=== PATIENT | male | born 1945 | race Caucasian/White ===

== ENCOUNTER → 2016-11-27 | Outpatient (REF) | payer MEDICARE, OTHER ==
[~2016-11-27] MED LIST: ATOR40TA PO; CENTTAB PO; COUM2.5T11 PO; FISH OIL OR; PERC5TAB6 PO; THERATEARS OR; TYLE325T5 PO; calcium with D OR; mycophenolate OR; prednisone OR
[2016-11-27 14:18] LABS: BASO % 0.5 % (0.0-1.0); EOS # 0.2 K/mm3 (0.0-0.50); EOS % 3.3 % (0.0-3.0); LARGE UNSTAINED CELL # 0.1 K/mm3 (0.0-0.4); LARGE UNSTAINED CELL % 1.6 % (0.0-4.0); LYMPH # 1.3 K/mm3 (1.5-4.5); MEAN CORPUSCULAR HEMOGLOBIN 27.8 pg (27.0-33.0); MEAN CORPUSCULAR HGB CONC 32.1 g/dl (32.0-36.5); MEAN CORPUSCULAR VOLUME 86.7 fl (80.0-96.0); MONO # 0.4 K/mm3 (0.0-0.8); MONO % 4.9 % (0.0-5.0); NEUTROPHILS # 5.5 K/mm3 (1.8-7.7); NEUTROPHILS % 72.6 % (36.0-66.0); PLATELET COUNT, AUTOMATED 175 k/mm3 (150-450); RED CELL DISTRIBUTION WIDTH 15.3 % (11.5-14.5); WHITE BLOOD COUNT 7.6 K/mm3 (4.0-10.0)
[2016-11-27 14:32] LABS: ALBUMIN/GLOBULIN RATIO 1.38 (1.00-1.93); ALKALINE PHOSPHATASE 138 U/L (45-117); ALT/SGPT 33 U/L (12-78); ANION GAP 9 MEQ/L (8-16); AST/SGOT 25 U/L (15-37); BILIRUBIN,TOTAL 0.6 MG/DL (0.2-1.0); BLOOD UREA NITROGEN 26 MG/DL (7-18); CALCIUM LEVEL 9.3 MG/DL (8.8-10.2); CARBON DIOXIDE LEVEL 27 MEQ/L (21-32); CHLORIDE LEVEL 107 MEQ/L (98-107); GLOMERULAR FILTRATION RATE > 60.0 (>42); GLUCOSE, FASTING 67 MG/DL (83-110); POTASSIUM SERUM 4.1 MEQ/L (3.5-5.1); SODIUM LEVEL 143 MEQ/L (136-145); TOTAL PROTEIN 6.9 GM/DL (6.4-8.2)
[2016-11-27 14:55] LABS: CONTROL LINE INT CTR LINE PRESENT; HIV SCRN NEGATIVE (NEGATIVE); HIV SCRN1 NEGATIVE (NEGATIVE)
[2016-11-30 14:22] LABS: CRYPTOCOCCUS ANTIGEN SER TITER 1:10 (Neg:<1:5)
[2016-12-02 00:06] LABS: CRYPTOCOCCUS ANTIGEN SER Positive (Negative)
== END ==
LOC: M SFHCPLAZ 12:09
PROVIDERS: ATTEND Internal Medicine Infectious Disease
DX: B45.7 Disseminated cryptococcosis (principal); M17.11 Unilateral primary osteoarthritis, right knee; M05.741 Rheumatoid arthritis with rheumatoid factor of right hand without organ or systems involvement; N41.1 Chronic prostatitis; Z79.891 Long term (current) use of opiate analgesic; Z79.899 Other long term (current) drug therapy
CPT/HCPCS: 36415; 80053; 85025; 86140; 86803; 87806; 87899; G0463

== ENCOUNTER → 2016-12-27 | Outpatient (CLI) | payer MEDICARE, OTHER ==
[~2016-12-27] MED LIST changes: +ISOVUE-370 76% 100ML VIAL (Q9967) As Ordered ONE
--- NOTE | 2016-12-27 14:36 | REP ---
Clinical: History of Cryptococcosis. Technique: Axial contrast enhanced images from the thoracic inlet to the upper abdomen using 100 ml Isovue 370 intravenous contrast material with coronal and sagittal re-formations. Comparison: 06/01/2016. Findings: Scattered noncalcified lung lesions measuring up to approximately 15 mm are essentially unchanged when compared to prior examination and consistent with the diagnosis of Cryptococcosis. Lesions have essentially remains stable in size and quantity. No new areas of consolidation, nodule or mass lesion appreciated. No pleural effusion/reaction or pneumothorax. Tracheobronchial tree is patent. Mediastinum demonstrates atherosclerotic changes to the coronary arteries without cardiomegaly or pericardial effusion. Thoracic aorta is normal. No significant adenopathy. Surrounding musculoskeletal structures demonstrate age-related changes. Limited evaluation of the upper abdomen demonstrates normal bilateral adrenal glands along with cholelithiasis and right nephrolithiasis. Impression: 1. Stable noncalcified bilateral lung nodules (left greater than right) compatible with a history of Cryptococcosis. 2. No new acute mediastinal or pleuroparenchymal process appreciated. 3. Upper abdomen demonstrate cholelithiasis and right nephrolithiasis Signed by Eduardo Seaman MD 12/27/2016 02:27 P
== END ==
LOC: M RAD 12:49
PROVIDERS: ATTEND Internal Medicine Infectious Disease
DX: B45.7 Disseminated cryptococcosis (principal)
CPT/HCPCS: 71260; Q9967

== ENCOUNTER → 2017-01-19 | Outpatient (CLI) | payer MEDICARE, OTHER ==
[~2017-01-19] MED LIST changes: +BIMA01SOL OU; +DIFL200T PO; +FISH5CAP PO; +FLOM5CAP PO; -ISOVUE-370 76% 100ML VIAL (Q9967) As Ordered ONE; +TRAM50TA2 PO
[2017-01-19 12:26] LABS: MEAN CORPUSCULAR HEMOGLOBIN 29.5 pg (27.0-33.0); MEAN CORPUSCULAR HGB CONC 33.2 g/dl (32.0-36.5); MEAN CORPUSCULAR VOLUME 88.8 fl (80.0-96.0); RED CELL DISTRIBUTION WIDTH 14.9 % (11.5-14.5)
[2017-01-19 12:37] LABS: INR 1.11
[2017-01-19 12:44] LABS: ALBUMIN 4.3 GM/DL (3.2-5.2); ALBUMIN/GLOBULIN RATIO 1.43 (1.00-1.93); CREATININE FOR GFR 2.07 MG/DL (0.70-1.30); POTASSIUM SERUM 4.2 MEQ/L (3.5-5.1); TOTAL PROTEIN 7.3 GM/DL (6.4-8.2)
[2017-01-19 13:01] LABS: CALCIUM OXALATE CRYSTALS SMALL
--- NOTE | 2017-01-19 18:41 | ECGEPIP ---
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
== END ==
LOC: M ADMPAT 09:23
PROVIDERS: ATTEND Orthopaedic Surgery
DX: Z01.818 Encounter for other preprocedural examination (principal); Z79.899 Other long term (current) drug therapy; M17.11 Unilateral primary osteoarthritis, right knee

== ENCOUNTER 2017-02-05 08:25 | Inpatient (IN) | payer MEDICARE, OTHER ==
[2017-01-19 11:00] VITALS: BP 78/58
--- NOTE | 2017-01-29 10:16 | HPE ---
DATE OF ADMISSION: 02/05/2017 ATTENDING PHYSICIAN: Dr. Jose M Roach. CHIEF COMPLAINT: Right knee pain and stiffness. HISTORY: is a pleasant 71-year-old male with progressively worsening right knee pain and stiffness. He has failed to improve with conservative management. He has elected for surgery for his continued symptoms with weight bearing activities and activities of daily living. He has consented for a right total knee arthroplasty with Dr. Roach. Medical optimization completed with Dr. Mcallister and reviewed during today's visit. CURRENT MEDICATIONS: - atorvastatin 40 mg daily - Flomax 0.4 mg daily - fish oil 1200 mg daily - Cellcept 500 mg daily - daily multivitamin - calcium with vitamin D 600/200 mg per unit daily ALLERGIES: No known drug allergies. MEDICAL HISTORY: Hyperlipidemia. 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 Coronary artery disease. Collagen disease. SURGICAL HISTORY: Left total knee arthroplasty. Coronary artery bypass. SOCIAL HISTORY: Patient is a former smoker, quit in 1999. Denies alcohol use. Patient is , lives at home with his . FAMILY HISTORY: Mother and sister have history of arthritis. Otherwise noncontributory. REVIEW OF SYSTEMS: Patient denies fevers, chills, nausea, vomiting or diarrhea. He denies chest pain, shortness of breath, difficulty breathing or cough. He denies any recent upper respiratory infection or urinary tract infection symptoms. He does have persistent pain in his right knee with weight bearing activities. EXAM: Patient is a well nourished, well developed male in no apparent distress. Musculoskeletal exam: Patient walks with a limp favoring the right side with use of a walker. Inspection of the right knee reveal no erythema, edema or ecchymosis. His skin is intact. There is tenderness to palpation along the medial and lateral joint line. Patient can extend knee to about 5 degree and flex to about 100 degrees. He has normal strength of the right lower extremity. No hip irritability was elicited with range of motion. His calf is soft, nontender to palpation with no palpable cords noted. Distally he is neurovascularly intact. Neck: Supple without lymphadenopathy or jugular venous distention. Lungs: Clear to auscultation bilaterally. Heart: Regular rate and rhythm. Abdomen: Bowel sounds are present. Abdomen is soft, nontender to palpation. VITAL SIGNS: Height 62 inches, weight 161 pounds, temperature 98.5, blood pressure 130/70, heart rate 60, respiratory rate 10. LABORATORY DATA: Chest x-ray: Impression: 1. Stable noncalcified bilateral lung nodules compatible with history of Cryptococcus. 2. No acute mediastinal or pleuroparenchymal process appreciated. 3. Upper abdomen demonstrates cholelithiasis and right nephrolithiasis. EKG: Sinus rhythm with first degree AV block. Right bundle branch block. No significant changes from previous studies. Comprehensive metabolic profile: Fasting glucose 102, BUN elevated at 32, creatinine for glomerular filtration rate elevated at 2.07, glomerular filtration rate decreased at 34, sodium 140, potassium 4.2, chloride 99, carbon dioxide 29, anion gap 12, calcium 10, AST 28, ALT 29, alkaline phosphatase elevated at 128, total bilirubin 1.0, total protein 7.3, albumin 4.3, albumin globulin ratio 1.43. Complete blood count: WBC 9.0, RBC 4.69, hemoglobin decreased at 13.9, hematocrit decreased at 41.7, platelet count 188. Erythrocyte sedimentation rate 17. Prothrombin time 14.4. INR 1.11. Urine analysis positive for 2+ leukocyte esterase. WBC elevated at 46, RBC elevated at 16. Bacteria elevated at 1+. Urine culture shows no growth of clinical significance, one organism. Nasal and sinus cultures show few staphylococcus aureus organisms. DIAGNOSIS AND PLAN: 1. Symptomatic osteoarthritis of the right knee with x-rays notable for end stage degenerative changes. Patient has consented for a right total knee arthroplasty with Dr. Jose M Roach. He is pending medical optimization by Dr. Mcallister. 2. Abnormal kidney function testing. Dr. Mcallister, patient's primary career services coordinator is repeating labs today. If normal, patient should be cleared for surgery. Otherwise surgery may need to be postponed. ADDENDUM: 02/05/2017 Patient seen and examined. He wishes to go ahead with a right total knee arthroplasty. He understands the nature this, the risks of bleeding, infection , damage to nerves, vessels, persistent pain, blood clots, medical problems, , among others. He has failed conservative management. KM
[2017-02-05] VITALS (8 sets, daily range): BP systolic 89–144; BP diastolic 50–64; O2SAT 96
[~2017-02-05] VITALS: Ht 162.6 cm; Wt 74.4 kg
[~2017-02-05 08:25] MED LIST changes: +BUPIVACAINE HCL 0.25% 30 ML VIAL As Ordered ONE; +EPINEPHrine INJ 1 MG/ML 1ML VIAL/AMP As Ordered ONE; +TRANEXAMIC ACID 100 MG/ML 10ML VIAL As Ordered ONE; +ceFAZolin 1GM INJ (J0690) As Ordered ONE
[2017-02-05] MEDS ORDERED: LR 1,000 ML IV SCH ×2 (08:30→12:30)
[2017-02-05] MEDS ORDERED: ceFAZolin SOD 1 GM in D5W MINI-BAG PLUS 50 ML IV ONE (08:45)
[2017-02-05] MEDS: ATORVASTATIN 20 MG TAB PO SCH (09:00)
[2017-02-05] MEDS ORDERED: MIDAZOLAM INJ 2 MG/2 ML VIAL (J2250) As Ordered ONE ×2 (09:38→10:32)
[2017-02-05] MEDS ORDERED: fentaNYL 100 MCG/2 ML INJECTION (J3010) As Ordered ONE ×3 (09:38→10:32)
[2017-02-05] MEDS ORDERED: ONDANSETRON 4MG/2ML VIAL (J2405) As Ordered ONE (10:33)
[2017-02-05] MEDS ORDERED: LIDOCAINE 2% INJ 100 MG/5 ML SDV (FOR ANES.) As Ordered ONE (10:33)
[2017-02-05] MEDS ORDERED: PROPOFOL 200 MG/20 ML VIAL As Ordered ONE (10:33)
[2017-02-05] MEDS ORDERED: PHENYLephrine HCL 500 MCG/5 ML (100MCG/ML) SYRINGE (J2370) As Ordered ONE (10:51)
[2017-02-05] MEDS ORDERED: fentaNYL 100 MCG/2 ML INJECTION (J3010) IV ONE (11:00)
[2017-02-05] MEDS ORDERED: MIDAZOLAM INJ 2 MG/2 ML VIAL (J2250) IV ONE ×2 (11:00→11:03)
[2017-02-05] MEDS ORDERED: ePHEDrine SULFATE 25 MG/5 ML(5MG/ML) SYRINGE As Ordered ONE (11:06)
[2017-02-05] MEDS ORDERED: MORPHINE PCA 1MG/ML 100ML CADD As Ordered ONE (12:26)
[2017-02-05] MEDS ORDERED: HYDROmorphone HCL 1 MG/ML SYRINGE (J1170) IV PRN (12:30)
[2017-02-05] MEDS ORDERED: fentaNYL 100 MCG/2 ML INJECTION (J3010) IV PRN (12:30)
[2017-02-05] MEDS ORDERED: PERCOCET 5MG/325MG TAB PO PRN (12:30)
[2017-02-05] MEDS ORDERED: ONDANSETRON 4MG/2ML VIAL (J2405) IV PRN ×3 (12:30→12:45)
[2017-02-05] MEDS ORDERED: EPIDURAL/PCA KEYS XX PRN (12:45)
[2017-02-05] MEDS ORDERED: diphenhydrAMINE INJ 50MG/ML VIAL (J1200) IV PRN (12:45)
[2017-02-05] MEDS ORDERED: FLEET ENEMA PR PRN (12:45)
[2017-02-05] MEDS ORDERED: PATIENT IS CURRENTLY ON AN ON-Q PAIN BUSTER PAIN RELIEF SYSTEM XX SCH (12:45)
[2017-02-05] MEDS: LR 1,000 ML IV SCH (12:45)
[2017-02-05] MEDS ORDERED: NALBUPHINE HCL 10 MG/ML AMP (J2300) IV PRN (12:45)
[2017-02-05] MEDS ORDERED: ACETAMINOPHEN TAB 650MG DOSE (2X325MG) PO PRN (12:45)
[2017-02-05] MEDS ORDERED: NALOXONE INJ 0.4 MG/1 ML VIAL (J2310) IV PRN (12:45)
[2017-02-05] MEDS ORDERED: MORPHINE PCA 1MG/ML 100ML CADD IV PRN (12:45)
[2017-02-05] MEDS ORDERED: ROPIvacaine 0.5% 30 ML INJECTION (J2795) ONE (13:38)
--- NOTE | 2017-02-05 15:13 | CR.PDOC ---
[facility] Consultation Consultation HOSPITALIST CONSULT NOTE Date of consult: 02/05/2017 Referring Provider: Dr. Roach PCP: Dr. Preston Mcallister Reason for Consult: Medical management HPI: 71-year-old male with coronary artery disease status post CABG, hyperlipidemia, BPH with history of cryptococcus infection, rheumatoid arthritis who underwent right total knee replacement with Dr. Roach today. Reportedly, there were no complications during the surgery, and the patient states that he currently feels well. He denies any chest pain, trouble breathing , or nausea and vomiting. Past medical history: Coronary artery disease status post CABG, hyperlipidemia, BPH with history of cryptococcus infection, rheumatoid arthritis Past surgical history: Bilateral knee replacements, CABG Family history: Both his mother and his sister have arthritis. Social history: The patient currently lives with his . He quit smoking approximately 15 years ago. He denies any drug or alcohol use. Allergies: No known drug allergies Review of systems: General: Negative for fever and chills Eyes:. Negative for Vision changes and ocular discharge ENT: Negative for sore throat and nose bleed Cardiovascular: Negative for chest pain and palpitations Respiratory: Negative for shortness of breath and cough GI: Negative for nausea, vomiting, diarrhea, constipation Musculoskeletal: Positive for chronic arthralgias Skin: Negative for rash Neuro: Negative for headache, dizziness, numbness, tingling Psych: Negative for depression and suicidal ideation Endocrine: Negative for polyuria : Negative for dysuria Heme: Negative for bruising and bleeding Home meds: See below Physical exam: Vital signs: Blood pressure 144/62, HR 67, temperature 97.3, O2 sat 100% on 2 L , RR 16 Gen.: awake, alert, no acute distress Eyes: Extraocular movements intact, normal sclera ENT: Moist mucous membranes Cardiovascular: RRR, no murmurs rubs or gallops Lungs: clear to auscultation bilaterally, no rales, rhonchi, or wheeze Abdomen: Soft, NT/ND, normal BS Extremities: Intact bilateral pedal pulses Neuro: alert and oriented 3, normal speech, no focal deficits Psych: Normal mood with congruent affect Labs and radiology: None to review Assessment and plan: 71-year-old male with coronary artery disease status post CABG, hyperlipidemia, BPH with history of cryptococcus infection, rheumatoid arthritis who underwent right total knee replacement with Dr. Roach today. We have been consulted for management of his chronic medical conditions. 1. Coronary artery disease status post CABG, hyperlipidemia: The patient currently denies any chest pain. He is on Lipitor at home, which we will continue. He does not report taking an aspirin or a beta sridhar at home. It appears that his heart rate is in the 60s, so it may be that he is unable to tolerate a beta sridhar. However, this should be discussed with his outpatient physicians, and if he has any issues with elevated blood pressures here, we will attempt to use a beta sridhar if his heart rate can handle it. 2. BPH with history of cryptococcus infection: The patient states that he currently follows with a urologist by the name of Dr. Danielson in [place], as well as Dr. Ott. He reports that up until recently, he had been taking fluconazole for the cryptococcal infection, but there was some concern that this was affecting his kidney function, so his physicians stopped it. He reports that after stopping it, his kidney function has returned to normal. He states that there are plans for him to restart the fluconazole in the future, but he is not taking it right now. We will continue his home Flomax. 3. Rheumatoid arthritis: The patient states that he used to take CellCept for this, but has not taken the CellCept in approximately 6 months. His postsurgical care, as well as pain, will be managed by his surgeon, Dr. Roach. DVT prophylaxis: As per the primary team Thank you for this consult. We will continue to follow along with you; beginning tomorrow, the patient will be followed by Dr. Felix. Vital Signs/I&O Vital Signs Date Time Temp Pulse Resp B/P Pulse Ox O2 Delivery O2 Flow Rate FiO2 02/05/17 14:00 97.3 67 16 144/62 100 Nasal Cannula 2.0 Allergies Coded Allergies: No Known Allergies (Verified , 05/11/03) Home Medications Scheduled ([calcium with D]) 1 TAB OR DAILY (Reported) (Fish Oil 1200 mg) 1 Cap Cap 1 CAP PO DAILY (Reported) Atorvastatin Calcium (Atorvastatin Calcium) 40 Mg Tab 40 MG PO DAILY (Reported ) Bimatoprost (Lumigan) 50 Drop/2.5 Ml Kristy 1 DROP OU QHS (Reported) Multivitamins (Centrum Silver) 1 Tab Tab 1 TAB PO DAILY (Reported) Tamsulosin Hydrochloride (Flomax) 0.4 Mg Cap 1 CAP PO DAILY (Reported) once daily 1/2 hour following the same meal each day Scheduled PRN Acetaminophen (Tylenol) 325 Mg Tab 650 MG PO Q4HP PRN PRN TEMP => 100 (Reported ) Tramadol HCl (Tramadol HCl) 50 Mg Tab 50 MG PO PRN PRN PRN PAIN (Reported) CAMILO BRAND Feb 05, 2017 15:13
[2017-02-05] MEDS ORDERED: WARFARIN SOD 5 MG TAB PO SCH (17:00)
[2017-02-05] MEDS: ceFAZolin SOD 1 GM in D5W MINI-BAG PLUS 50 ML IV SCH (17:58)
--- NOTE | 2017-02-06 00:11 | RO ---
DATE OF PROCEDURE: 02/05/2017 PREOPERATIVE DIAGNOSIS: Right knee osteoarthritis. POSTOPERATIVE DIAGNOSIS: Right knee osteoarthritis. PROCEDURE: Right total knee arthroplasty using a PFC rotating platform posterior stabilized, size 3 femur, size 3 tibia, 12.5 polyethylene, 35 patellar button. SURGEON: Dr. Jose M Roach WATERSHED ENGINEER: Levi Darnell ANESTHESIA: Spinal. ESTIMATED BLOOD LOSS: Less than 50 mL. COMPLICATIONS: None. INDICATIONS: This is a 71-year-old gentleman with some medical issues who has had gradually worsening right knee pain. He has been through a previous knee replacement on the other side, and he wished to go ahead with a right knee replacement, having failed conservative management. He understood the nature of this, the risks of bleeding, infection, damage to nerves/vessels, persistent pain, wear, loosening, blood clots, medical problems, , among others. DESCRIPTION OF PROCEDURE: Patient taken to the operating room, placed in supine position after spinal anesthesia was induced. The right lower extremity was prepped and draped in the usual sterile fashion. A time-out was performed. I then created a longitudinal incision over the anterior aspect of the knee. Sharp dissection was carried through the subcutaneous tissue until the deep layer was encountered. I then incised with the medial parapatellar arthrotomy. Everted the patella, flexed the knee up, and then used a canal initiating reamer followed by the intramedullary reamer set at 5 and 10. This was pinned in place by the fire assistant. The distal femoral cut was made by the fire assistant as we protected soft tissues. I then sized the femur to be a 3; it was right on a 3, and this was pinned in place. The external rotation guide was used to make holes in the end the femur. I then placed the 4-in-1 cutting block, secured this down, and made the remaining cuts, again protecting soft tissues at all times. The posterior cruciate ligament (PCL) had been deficient right from the beginning; I did remove any remnants. The posterior retractor was placed. I put the tibial alignment guide in the appropriate amount of valgus and posterior slope and then pinned this in place about 4 mm off the low side and then made this cut, removing excess bone. Removed soft tissue and osteophytes from either side of the knee. I used the spacer blocks, and the size 12.5 had excellent stability in flexion and extension. An adequate medial release had been performed. We then prepared the box. The box cutting guide was placed and secured in place. The three cuts were made with the fire assistant making the final cut. The bone was filed, and the 3 posterior stabilized femur was placed. We then prepared the tibia; size 3 tibial tray fit nicely. This was drilled and broached, and then the trial components were placed. Put the knee through a range of motion. Excellent stability was noted in flexion and extension. Excellent soft tissue balance was noted. The alignment looked excellent. I then freehand cut the patella, removing about 7 mm of bone, removed this, sized to be a 35, and drilled the holes. The patella tracked quite nicely. Put the knee through a range of motion. Very pleased with all the components. These were all opened. I removed the trial components. Irrigated copiously as the fire assistant prepared the bone cement in the modern technique. The bony surfaces were copiously irrigated, dried, and then I cemented on the tibial tray. Cemented on the femoral component. Excess bone was removed. We placed the polyethylene size 12.5, 3 rotating platform, reduced the knee, and then cemented on the patella with the patellar clamp holding it in place, removing excess bone cement. The knee was copiously irrigated again. Placed the tranexamic acid (TXA) solution. Closed the deep layer with #1 Vicryl suture in interrupted fashion, placing about three or four sutures. We then used a running Stratafix suture starting at the midportion of the patella, working in both directions, obtaining a watertight closure. We then irrigated. Closed the subcu with #2-0 Vicryl and the skin with yevgeniy. The PainBuster was inserted through the superolateral aspect of the knee and activated appropriately and primed. We did use 10 mL into the knee joint at the beginning. Tourniquet was deflated. Sterile dressing was applied. He was taken to recovery room in stable condition. There were no know complications. The plan be routine postoperative. The fire assistant was instrumental in holding retractors and making a couple of the cuts and wound closure.
[2017-02-06 02:00] VITALS: BP 114/59
[2017-02-06] MEDS: LR 1,000 ML IV SCH (02:05)
[2017-02-06] MEDS: ceFAZolin SOD 1 GM in D5W MINI-BAG PLUS 50 ML IV SCH (03:39)
[2017-02-06 06:00] VITALS: BP 115/59
[2017-02-06 06:41] LABS: MEAN CORPUSCULAR HEMOGLOBIN 29.5 pg (27.0-33.0); MEAN CORPUSCULAR VOLUME 89.7 fl (80.0-96.0); RED CELL DISTRIBUTION WIDTH 14.9 % (11.5-14.5); WHITE BLOOD COUNT 8.1 K/mm3 (4.0-10.0)
[2017-02-06 06:45] LABS: INR 1.19
[2017-02-06] MEDS ORDERED: ONDANSETRON 4 MG TAB (S0181) PO PRN (07:15)
[2017-02-06] MEDS: PERCOCET 5MG/325MG TAB PO PRN ×2 (07:38→11:37)
--- NOTE | 2017-02-06 09:53 | REP ---
RIGHT KNEE: Two views of the right knee are performed. Total knee arthroplasty is noted with structures well aligned. Metallic skin yevgeniy are seen anteriorly. Signed by Darryl Castaneda MD 02/06/2017 04:36 P
[2017-02-06] MEDS: SENOKOT S TAB PO SCH ×2 (10:13→21:22)
[2017-02-06] MEDS: MIRALAX *UNIT DOSE* 17GM PACKET PO SCH (10:13)
[2017-02-06] MEDS: ATORVASTATIN 20 MG TAB PO SCH (10:13)
[2017-02-06] MEDS: TAMSULOSIN 0.4 MG CAP PO SCH (10:13)
[2017-02-06] MEDS: MOM 30ML SUSPENSION UDC PO SCH (10:14)
[2017-02-06] MEDS: MULTIVITAMINS/MINERALS THERAP 1 TAB PO SCH (10:14)
[2017-02-06 14:00] VITALS: BP 110/59
--- NOTE | 2017-02-06 16:24 | IPNPDOC ---
Subjective Date Seen The patient was seen on 02/06/17. Subjective Chief Complaint/HPI The patient is a 71-year-old male admitted with a reason for visit of Arthritis Right Knee. General: Denies: Chills, Night Sweats Constitutional: Denies: Chills, Fever Eyes: Denies: Pain, Vision change ENT: Denies: Ear Pain, Head Aches Skin: Denies: Lesions, Rash Pulmonary: Denies: Cough, Dyspnea Cardiovascular: Denies: Chest Pain, Palpitations Gastrointestinal: Denies: Nausea, Vomiting Genitourinary: Denies: Dysuria, Frequency Hematologic: Denies: Bleeding Excessively, Bruising Objective Physical Examination General Exam: Positive: Alert, Cooperative, No Acute Distress ENT Exam: Positive: Atraumatic, Mucous membr. moist/pink Neck Exam: Negative: JVD Chest Exam: Positive: Clear to auscultation, Normal air movement Heart Exam: Positive: Normal S1, Normal S2, Rate Normal Abdomen Exam: Positive: Soft, Negative: Tenderness Extremity Exam: Positive: Other (Right Knee wrapped in surgical dressing, no active bleeding or drainage noted through dressing. Neurovascularly intact distally.), Negative: Tenderness Assessment /Plan Plan/VTE VTE Prophylaxis Ordered?: Yes Plan Right Knee Arthritis s/p Total Knee Replacement Pain management and DVT prophylaxis as per Ortho team Coronary artery disease status post CABG, hyperlipidemia Continue Lipitor Not on BB 2/2 low baseline HR BPH Follows with [place] urologist, Dr. Danielson in [place] Continue Flomax. Hx of Rheumatoid arthritis Currently not on any Meds DVT prophylaxis: As per the primary team VS, I&O, 24H, Fishbone Vital Signs/I&O Vital Signs Date Time Temp Pulse Resp B/P Pulse Ox O2 Delivery O2 Flow Rate FiO2 02/06/17 12:44 18 02/06/17 10:50 Room Air 02/06/17 06:00 99.3 87 115/59 96 02/06/17 02:00 2.0 I&O- Last 24 Hours up to 6 AM 02/06/17 06:00 Intake Total 3648 ml Output Total 725 ml Balance 2923 ml Laboratory Data 24H LABS Laboratory Tests 2 02/06/17 06:26: Prothromb Time International Ratio 1.19, Prothrombin Time 15.2H CBC/BMP Laboratory Tests 02/06/17 06:26 Red Blood Count 3.97 L, Mean Corpuscular Volume 89.7, Mean Corpuscular Hemoglobin 29.5, Mean Corpuscular Hemoglobin Concent 33.0, Red Cell Distribution Width 14.9 H MARK LAGOS MD Feb 06, 2017 16:24
[2017-02-06 16:30] VITALS: BP 124/77
[2017-02-06] MEDS ORDERED: WARFARIN SOD 5 MG TAB PO ONE (17:00)
--- NOTE | 2017-02-06 17:23 | REP ---
NONCONTRAST HEAD CT STUDY: History: Injury in a fall. Comparison study August 08, 2016. Findings: Bone window settings demonstrate an intact bony calvarium. No calvarial fracture is seen. There is fairly heavy vascular calcification in the distal carotid arteries bilaterally. Visualized paranasal sinuses are clear. No intraorbital abnormality is seen. There is no evidence of intracranial hemorrhage. There is diffuse mild to moderate cerebral atrophy again noted. No extra-axial fluid collection, mass, infarction or midline shift is seen. Impression: Vascular calcification and diffuse moderate atrophy again noted. No acute intracranial lesion. No skull fracture seen. Signed by Nakul Wills MD 02/06/2017 06:06 P
--- NOTE | 2017-02-06 17:31 | REP ---
Right knee: Two views: History: Injury in a fall. Comparison study is from earlier this date. Findings: The patient is status post right knee arthroplasty. The femoral, tibial, and patellar components remain well-aligned and unchanged. Postoperative soft tissue emphysema and swelling are seen. Anterior skin yevgeniy and a pain control device are noted. Vascular calcification is seen. No fracture or traumatic subluxation is seen. The patient status post right knee arthroplasty. Signed by Nakul Wills MD 02/06/2017 06:06 P
[2017-02-06 21:00] VITALS: O2SAT 95
[2017-02-06 22:00] VITALS: BP 103/52
[2017-02-07 06:00] VITALS: BP 101/55
[2017-02-07 07:34] LABS: INR 1.46; MEAN CORPUSCULAR HEMOGLOBIN 29.3 pg (27.0-33.0); MEAN CORPUSCULAR VOLUME 88.7 fl (80.0-96.0); RED CELL DISTRIBUTION WIDTH 14.7 % (11.5-14.5); WHITE BLOOD COUNT 10.3 K/mm3 (4.0-10.0)
[2017-02-07] MEDS: MOM 30ML SUSPENSION UDC PO SCH (08:34)
[2017-02-07] MEDS: TAMSULOSIN 0.4 MG CAP PO SCH (08:34)
[2017-02-07] MEDS: MIRALAX *UNIT DOSE* 17GM PACKET PO SCH (08:34)
[2017-02-07] MEDS: ATORVASTATIN 20 MG TAB PO SCH (08:35)
[2017-02-07] MEDS: MULTIVITAMINS/MINERALS THERAP 1 TAB PO SCH (08:35)
[2017-02-07] MEDS: PERCOCET 5MG/325MG TAB PO PRN ×3 (08:35→21:16)
[2017-02-07] MEDS: SENOKOT S TAB PO SCH ×2 (08:35→21:15)
[2017-02-07] MEDS ORDERED: diphenhydrAMINE 25 MG CAP PO PRN (09:15)
--- NOTE | 2017-02-07 13:47 | IPNPDOC ---
Subjective Date Seen The patient was seen on 02/07/17. Subjective Chief Complaint/HPI The patient is a 71-year-old male admitted with a reason for visit of Arthritis Right Knee. General: Denies: Chills, Night Sweats Constitutional: Denies: Chills, Fever Eyes: Denies: Pain, Vision change ENT: Denies: Ear Pain, Head Aches Skin: Denies: Lesions, Rash Pulmonary: Denies: Cough, Dyspnea Cardiovascular: Denies: Chest Pain, Palpitations Gastrointestinal: Denies: Nausea, Vomiting Genitourinary: Denies: Dysuria, Frequency Hematologic: Denies: Bleeding Excessively, Bruising Musculoskeletal: Denies: Back Pain, Neck Pain Objective Physical Examination General Exam: Positive: Alert, Cooperative, No Acute Distress ENT Exam: Positive: Atraumatic, Mucous membr. moist/pink Neck Exam: Negative: JVD Chest Exam: Positive: Clear to auscultation, Normal air movement Heart Exam: Positive: Normal S1, Normal S2, Rate Normal Abdomen Exam: Positive: Soft, Negative: Tenderness Extremity Exam: Positive: Other (Right Knee wrapped in surgical dressing, no active bleeding or drainage noted through dressing. Neurovascularly intact distally.), Negative: Tenderness Assessment /Plan Plan/VTE VTE Prophylaxis Ordered?: Yes Plan Right Knee Arthritis s/p Total Knee Replacement Pain management and DVT prophylaxis as per Ortho team s/p Mechanical Fall on 02/06 CT Scan of the Head, XR of Right Knee with no acute findings Coronary artery disease status post CABG, hyperlipidemia Continue Lipitor Not on BB 2/2 low baseline HR BPH Follows with [place] urologist, Dr. Danielson in [place] Continue Flomax. Hx of Rheumatoid arthritis Currently not on any Meds DVT prophylaxis: As per the primary team VS, I&O, 24H, Fishbone Vital Signs/I&O Vital Signs Date Time Temp Pulse Resp B/P Pulse Ox O2 Delivery O2 Flow Rate FiO2 02/07/17 09:30 Room Air 02/07/17 09:30 18 02/07/17 06:00 98.3 75 101/55 96 02/06/17 02:00 2.0 I&O- Last 24 Hours up to 6 AM 02/07/17 06:00 Intake Total 1800 ml Output Total 825 ml Balance 975 ml Laboratory Data 24H LABS Laboratory Tests 2 02/07/17 06:32: Prothromb Time International Ratio 1.46, Prothrombin Time 17.8H CBC/BMP Laboratory Tests 02/07/17 06:32 Red Blood Count 3.78 L, Mean Corpuscular Volume 88.7, Mean Corpuscular Hemoglobin 29.3, Mean Corpuscular Hemoglobin Concent 33.0, Red Cell Distribution Width 14.7 H MARK LAGOS MD Feb 07, 2017 13:47
[2017-02-07 14:00] VITALS: BP 125/58
[2017-02-07] MEDS ORDERED: WARFARIN SOD 7.5 MG TAB PO ONE (17:00)
[2017-02-07 22:00] VITALS: BP 126/58
[2017-02-08 06:00] VITALS: BP 119/53
[2017-02-08] MEDS: PERCOCET 5MG/325MG TAB PO PRN (06:36)
[2017-02-08 06:56] LABS: INR 1.91
[2017-02-08] MEDS: MOM 30ML SUSPENSION UDC PO SCH (08:30)
[2017-02-08] MEDS: MIRALAX *UNIT DOSE* 17GM PACKET PO SCH (08:31)
[2017-02-08] MEDS: ATORVASTATIN 20 MG TAB PO SCH (08:31)
[2017-02-08] MEDS: TAMSULOSIN 0.4 MG CAP PO SCH (08:31)
[2017-02-08] MEDS: SENOKOT S TAB PO SCH (08:32)
[2017-02-08] MEDS: MULTIVITAMINS/MINERALS THERAP 1 TAB PO SCH (08:37)
[2017-02-08] MEDS ORDERED: PERC5TAB6 PO ×2 (08:42→08:57)
[2017-02-08] MEDS ORDERED: COUM2.5T11 PO (08:42)
[2017-02-08 08:47] VITALS: BP 118/50
[2017-02-08 12:07] VITALS: BP 159/56
--- NOTE | 2017-02-08 12:31 | IPNPDOC ---
Subjective Date Seen The patient was seen on 02/08/17. Subjective Chief Complaint/HPI The patient is a 71-year-old male admitted with a reason for visit of Arthritis Right Knee. General: Denies: Chills, Night Sweats Constitutional: Denies: Chills, Fever Eyes: Denies: Pain, Vision change ENT: Denies: Ear Pain, Head Aches Skin: Denies: Lesions, Rash Pulmonary: Denies: Cough, Dyspnea Cardiovascular: Denies: Chest Pain, Palpitations Gastrointestinal: Denies: Nausea, Vomiting Genitourinary: Denies: Dysuria, Frequency Hematologic: Denies: Bleeding Excessively, Bruising Objective Physical Examination General Exam: Positive: Alert, Cooperative, No Acute Distress ENT Exam: Positive: Atraumatic, Mucous membr. moist/pink Neck Exam: Negative: JVD Chest Exam: Positive: Clear to auscultation, Normal air movement Heart Exam: Positive: Normal S1, Normal S2, Rate Normal Abdomen Exam: Positive: Soft, Negative: Tenderness Extremity Exam: Positive: Other (Right Knee wrapped in surgical dressing, no active bleeding or drainage noted through dressing. 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 Danielson in [place] Continue Flomax. Hx of Rheumatoid arthritis Currently not on any Meds DVT prophylaxis: As per the primary team VS, I&O, 24H, Fishbone Vital Signs/I&O Vital Signs Date Time Temp Pulse Resp B/P Pulse Ox O2 Delivery O2 Flow Rate FiO2 02/08/17 12:07 98.4 76 159/56 100 Room Air 02/08/17 11:42 16 02/06/17 02:00 2.0 I&O- Last 24 Hours up to 6 AM 02/08/17 06:00 Intake Total 480 ml Output Total 0 ml Balance 480 ml Laboratory Data 24H LABS Laboratory Tests 2 02/08/17 06:35: Prothromb Time International Ratio 1.91, Prothrombin Time 22.0H MARK LAGOS MD Feb 08, 2017 12:31
[2017-02-08] MEDS ORDERED: WARFARIN SOD 2.5 MG TAB PO ONE (17:00)
== END 2017-02-08 12:20 | disposition home health service (06) | DRG 470 ==
LOC: M OR 08:25 → M MS5PR 13:40
PROVIDERS: ADMIT Orthopaedic Surgery; ATTEND Orthopaedic Surgery
PROC: 0SRC0J9 Replacement of Right Knee Joint with Synthetic Substitute, Cemented, Open Approach (ICD-10-PCS; principal; 2017-02-05 10:45)
DX: M17.11 Unilateral primary osteoarthritis, right knee (principal); E78.5 Hyperlipidemia, unspecified; N40.0 Benign prostatic hyperplasia without lower urinary tract symptoms; I25.10 Atherosclerotic heart disease of native coronary artery without angina pectoris; M05.9 Rheumatoid arthritis with rheumatoid factor, unspecified; M35.9 Systemic involvement of connective tissue, unspecified; Z95.0 Presence of cardiac pacemaker; Z96.652 Presence of left artificial knee joint; Z87.891 Personal history of nicotine dependence; Z79.899 Other long term (current) drug therapy

== ENCOUNTER → 2017-02-12 | Outpatient (REF) | payer MEDICARE, OTHER ==
[~2017-02-12] MED LIST changes: -BUPIVACAINE HCL 0.25% 30 ML VIAL As Ordered ONE; -EPINEPHrine INJ 1 MG/ML 1ML VIAL/AMP As Ordered ONE; -TRANEXAMIC ACID 100 MG/ML 10ML VIAL As Ordered ONE; -ceFAZolin 1GM INJ (J0690) As Ordered ONE
[2017-02-12 13:52] LABS: INR 2.52
== END ==
LOC: M SHH 13:08
PROVIDERS: ATTEND Nurse Practitioner Family
DX: Z79.01 Long term (current) use of anticoagulants (principal)

== ENCOUNTER → 2017-02-15 | Outpatient (REF) | payer MEDICARE, OTHER ==
[2017-02-15 12:43] LABS: INR 1.76
== END ==
LOC: M LAB REF 12:05
PROVIDERS: ATTEND Nurse Practitioner Family
DX: Z79.01 Long term (current) use of anticoagulants (principal)

== ENCOUNTER → 2017-02-19 | Outpatient (REF) | payer MEDICARE, OTHER ==
[2017-02-19 12:13] LABS: INR 1.39
== END ==
LOC: M SHH 11:24
PROVIDERS: ATTEND Nurse Practitioner Family
DX: Z79.01 Long term (current) use of anticoagulants (principal)

== ENCOUNTER → 2017-02-22 | Outpatient (REF) | payer MEDICARE, OTHER ==
[2017-02-22 12:53] LABS: INR 1.42
== END ==
LOC: M LAB REF 12:31 → M SHH 12:31
PROVIDERS: ATTEND Nurse Practitioner Family
DX: Z79.01 Long term (current) use of anticoagulants (principal)

== ENCOUNTER → 2017-02-26 | Outpatient (REF) | payer MEDICARE, OTHER ==
[2017-02-26 13:53] LABS: INR 1.89
== END ==
LOC: M SHH 13:17
PROVIDERS: ATTEND Nurse Practitioner Family
DX: Z79.01 Long term (current) use of anticoagulants (principal)

== ENCOUNTER → 2017-03-01 | Outpatient (REF) | payer MEDICARE, OTHER ==
[2017-03-01 12:46] LABS: INR 2.14
== END ==
LOC: M SHH 11:51
PROVIDERS: ATTEND Nurse Practitioner Family
DX: Z79.01 Long term (current) use of anticoagulants (principal)

== ENCOUNTER → 2017-03-06 | Outpatient (REF) | payer MEDICARE, OTHER ==
[2017-03-06 14:05] LABS: INR 1.71
== END ==
LOC: M SHH 12:36
PROVIDERS: ATTEND Nurse Practitioner Family
DX: Z79.01 Long term (current) use of anticoagulants (principal)

== ENCOUNTER → 2017-04-30 | Outpatient (CLI) | payer MEDICARE, OTHER | LOC: M LAB 08:44 | PROVIDERS: ATTEND Urology | DX: N41.1 Chronic prostatitis (principal) ==

== ENCOUNTER → 2017-08-23 | Outpatient (CLI) | payer MEDICARE, OTHER ==
[~2017-08-23] MED LIST changes: -ATOR40TA PO; +ATOR40TA75 PO; -COUM2.5T11 PO; +COUM2.5T17 PO; +PERC5TAB12 PO; -PERC5TAB6 PO
--- NOTE | 2017-08-23 09:23 | REP ---
CT CHEST WITHOUT IV CONTRAST: CT chest is performed without IV contrast. Sagittal and coronal reconstruction images are performed. Comparison is made with prior exams, the most recent of which is 12/27/2016. Multiple left sided pulmonary nodules are again seen, unchanged in size and number compared to the prior study. No significant abnormality is seen in the right lung. There is no evidence of mediastinal or hilar adenopathy. There are mild atherosclerotic calcifications of the thoracic aorta without aneurysm. The heart is not enlarged. There is no pleural or pericardial effusion. There appear to be a few tiny gallstones in the gallbladder. A hypodense nodule in the inferior right lobe of the liver is stable compared to prior CT abdomen 07/22/2013. Multiple tiny calculi are seen in the right kidney. There are degenerative changes of the spine. IMPRESSION: No change in size and number of multiple left pulmonary nodules. Signed by Darryl Castaneda MD 08/23/2017 05:33 P
== END ==
LOC: M RAD 07:01
PROVIDERS: ATTEND Internal Medicine Infectious Disease
DX: R91.8 Other nonspecific abnormal finding of lung field (principal)

== ENCOUNTER → 2018-01-07 | Outpatient (REF) | payer MEDICARE, OTHER ==
[2018-01-07 13:24] LABS: BASO % 0.5 % (0.0-1.0); EOS # 0.2 10^3/uL (0.0-0.50); EOS % 2.7 % (0.0-3.0); HEMATOCRIT 44.3 % (42.0-52.0); HEMOGLOBIN 14.7 g/dl (14.0-18.0); IMMATURE GRANULOCYTE % 0.5 % (0-3.0); LYMPH # 1.2 10^3/uL (1.5-4.5); LYMPH % 14.9 % (24.0-44.0); MEAN CORPUSCULAR HEMOGLOBIN 30.4 pg (27.0-33.0); MEAN CORPUSCULAR HGB CONC 33.2 g/dl (32.0-36.5); MEAN CORPUSCULAR VOLUME 91.7 fl (80.0-96.0); MONO # 0.5 10^3/uL (0.0-0.8); MONO % 5.9 % (0.0-5.0); NEUTROPHILS # 5.8 10^3/uL (1.8-7.7); NEUTROPHILS % 75.5 % (36.0-66.0); PLATELET COUNT, AUTOMATED 150 10^3/uL (150-450); RED BLOOD COUNT 4.83 10^6/uL (4.30-6.10); RED CELL DISTRIBUTION WIDTH 13.7 % (11.5-14.5); WHITE BLOOD COUNT 7.7 10^3/uL (4.0-10.0)
[2018-01-07 13:52] LABS: ALBUMIN/GLOBULIN RATIO 1.54 (1.00-1.93); ALKALINE PHOSPHATASE 98 U/L (45-117); ALT/SGPT 31 U/L (12-78); ANION GAP 9 MEQ/L (8-16); AST/SGOT 30 U/L (7-37); BLOOD UREA NITROGEN 26 MG/DL (7-18); C REACTIVE PROTEIN QUANTITATIV < 0.30 MG/DL (0.00-0.30); CALCIUM LEVEL 9.5 MG/DL (8.8-10.2); CARBON DIOXIDE LEVEL 28 MEQ/L (21-32); CHLORIDE LEVEL 104 MEQ/L (98-107); CREATININE FOR GFR 1.37 MG/DL (0.70-1.30); GLOMERULAR FILTRATION RATE 54.5 (>42); GLUCOSE, FASTING 65 MG/DL (70-100); POTASSIUM SERUM 4.7 MEQ/L (3.5-5.1); SODIUM LEVEL 141 MEQ/L (136-145); TOTAL PROTEIN 6.6 GM/DL (6.4-8.2)
[2018-01-10 00:10] LABS: CRYPTOCOCCUS ANTIGEN SER Positive (Negative); CRYPTOCOCCUS ANTIGEN SER TITER 1:10 (Neg:<1:5)
== END ==
LOC: M SFHCPLAZ 11:09
DX: B45.7 Disseminated cryptococcosis (principal)
CPT/HCPCS: 80053

== ENCOUNTER → 2018-01-18 | Outpatient (CLI) | payer MEDICARE, OTHER ==
[~2018-01-18] MED LIST changes: -ATOR40TA75 PO; -BIMA01SOL OU; -CENTTAB PO; -COUM2.5T17 PO; -DIFL200T PO; -FISH OIL OR; -FISH5CAP PO; -FLOM5CAP PO; +ISOVUE-370 76% 100ML VIAL (Q9967) As Ordered; -PERC5TAB12 PO; -THERATEARS OR; -TRAM50TA2 PO; -TYLE325T5 PO; -calcium with D OR; -mycophenolate OR; -prednisone OR
== END ==
LOC: M RAD 10:42
DX: R91.8 Other nonspecific abnormal finding of lung field (principal); B45.7 Disseminated cryptococcosis
CPT/HCPCS: Q9967

== ENCOUNTER 2018-03-20 05:46 | Day surgery (SDC) | payer MEDICARE, OTHER ==
[2018-03-20] MEDS ORDERED: SLF 3 ML SYR IV ×4 (06:00)
[2018-03-20] MEDS ORDERED: ACETAMINOPHEN 325 MG TAB PO ×2 (06:00)
[2018-03-20] MEDS ORDERED: CYCLOPENTOLATE 2% OPHTH SOLN 2ML BTL As Ordered ×2 (06:11)
[2018-03-20] MEDS ORDERED: TROPICAMIDE 1% OPHTH SOLN 2ML As Ordered ×2 (06:11)
[2018-03-20] MEDS ORDERED: OFLOXACIN 0.3 % (OCUFLOX) OPTH SOL 5ML As Ordered ×2 (06:11)
[2018-03-20] MEDS ORDERED: PHENYLEPHRINE 2.5% OPHTH SOL 2ML As Ordered ×2 (06:12)
[2018-03-20] MEDS: TROPICAMIDE 1% OPHTH SOLN 2ML OD ×2 (06:49)
[2018-03-20] MEDS: OFLOXACIN 0.3 % (OCUFLOX) OPTH SOL 5ML OD ×2 (06:49)
[2018-03-20] MEDS: CYCLOPENTOLATE 2% OPHTH SOLN 2ML BTL OD ×2 (06:49)
[2018-03-20] MEDS: LIDOCAINE 3.5 % 1ML OPHTH TOPICAL GEL OU ×2 (06:49)
[2018-03-20] MEDS: PHENYLEPHRINE 2.5% OPHTH SOL 2ML OD ×2 (06:50)
[2018-03-20] MEDS ORDERED: PHENYLEPHRINE HCL 10 % OPHTH. SOL 5ML OD ×2 (07:00)
[2018-03-20] MEDS: BSS with VANC/TOB/EPI for EYE CASES IR ×2 (07:00)
[2018-03-20] MEDS ORDERED: PROPARACAINE 0.5% OPHTH SOL 15ML OD ×2 (07:01)
[2018-03-20] MEDS: POVIDONE-IODINE 5% OPHTH PREP SOL 30ML As Ordered ×2 (07:30)
[2018-03-20] MEDS ORDERED: MIDAZOLAM INJ 2 MG/2 ML VIAL (J2250) As Ordered ×2 (07:37)
[2018-03-20] MEDS ORDERED: fentaNYL 100 MCG/2 ML INJECTION (J3010) As Ordered ×2 (07:37)
[2018-03-20] MEDS: HEALON DUET (HEALON 10MG/ML 0.55ML & HEALON ENDOCOAT 30MG/ML 0.85ML) As Ordered ×6 (07:37→07:39)
[2018-03-20] MEDS: LIDOCAINE 1% SDV 5 ML VIAL As Ordered ×2 (07:38)
[2018-03-20] MEDS: CEFUROXIME 1MG/0.1ML INTRACAMERAL INJ As Ordered ×2 (07:38)
[2018-03-20] MEDS: ACETYLCHOLINE OPHTH SOLN 1% 2ML (MIOCHOL-E) As Ordered ×2 (07:46)
[2018-03-20] MEDS: KETOROLAC 0.5% OPHTH SOLN OD ×2 (08:15)
[2018-03-20] MEDS: AcetaZOLAMIDE 500 MG ER CAP PO ×2 (08:15)
[2018-03-20] MEDS ORDERED: TRIMETHOBENZAMIDE 300 MG CAP PO ×2 (08:15)
== END 2018-03-20 08:50 | disposition home or self-care (01) ==
LOC: M SDC 05:46
DX: H25.9 Unspecified age-related cataract (principal); H40.811 Glaucoma with increased episcleral venous pressure, right eye; H57.03 Miosis; H21.81 Floppy iris syndrome; I25.10 Atherosclerotic heart disease of native coronary artery without angina pectoris; Z79.82 Long term (current) use of aspirin; E78.5 Hyperlipidemia, unspecified; Z95.1 Presence of aortocoronary bypass graft; Z79.899 Other long term (current) drug therapy
CPT/HCPCS: 66982

== ENCOUNTER → 2018-05-10 | Outpatient (CLI) | payer MEDICARE, OTHER ==
[2018-05-10 07:10] LABS: PROSTATIC SPECIFIC AG MONITOR 3.08 NG/ML (< 4.0)
== END ==
LOC: M LAB 06:13
DX: R97.20 Elevated prostate specific antigen [PSA] (principal)
CPT/HCPCS: 84153

== ENCOUNTER → 2018-08-10 | Outpatient (CLI) | payer MEDICARE, OTHER | LOC: M RAD 09:37 | DX: R91.1 Solitary pulmonary nodule (principal); K80.20 Calculus of gallbladder without cholecystitis without obstruction; N20.0 Calculus of kidney; B45.7 Disseminated cryptococcosis | CPT/HCPCS: 71250 ==

== ENCOUNTER → 2019-05-14 | Outpatient (CLI) | payer MEDICARE, OTHER ==
[~2019-05-14] MED LIST changes: +ASPI81TA26 PO; +ATOR40TA75 PO; +BIMA01SOL OU; +CALC600T7 PO; +CENTTAB PO; +COUM2.5T17 PO; +DIFL200T PO; +FISH OIL OR; +FISH5CAP PO; +FLOM0.4C39 PO; -ISOVUE-370 76% 100ML VIAL (Q9967) As Ordered; +NAPR250T4 PO; +PERC5TAB12 PO; +THERATEARS OR; +THERCAP7 PO; +TRAM50TA2 PO; +TYLE325T5 PO; +calcium with D OR; +mycophenolate OR; +prednisone OR
== END ==
LOC: M LAB 07:15
PROVIDERS: ATTEND Urology
DX: R39.9 Unspecified symptoms and signs involving the genitourinary system (principal); N41.1 Chronic prostatitis; R97.20 Elevated prostate specific antigen [PSA]

== ENCOUNTER → 2019-06-17 | Outpatient (REF) | payer MEDICARE, OTHER ==
[2019-06-17 12:34] LABS: BASO # 0.1 10^3/uL (0.0-0.2); BASO % 0.9 % (0.0-1.0); EOS # 0.3 10^3/uL (0.0-0.50); HEMATOCRIT 43.2 % (42.0-52.0); HEMOGLOBIN 14.2 g/dl (13.5-17.5); LYMPH # 1.2 10^3/uL (1.5-4.5); LYMPH % 18.8 % (24.0-44.0); MEAN CORPUSCULAR HEMOGLOBIN 31.6 pg (27.0-33.0); MEAN CORPUSCULAR HGB CONC 32.9 g/dl (32.0-36.5); MONO # 0.4 10^3/uL (0.0-0.8); NEUTROPHILS # 4.5 10^3/uL (1.8-7.7); PLATELET COUNT, AUTOMATED 140 10^3/uL (150-450); WHITE BLOOD COUNT 6.6 10^3/uL (4.0-10.0)
[2019-06-17 12:51] LABS: ALBUMIN 4.2 GM/DL (3.2-5.2); ALT/SGPT 63 U/L (12-78); BILIRUBIN,TOTAL 1.1 MG/DL (0.2-1.0); BLOOD UREA NITROGEN 33 MG/DL (7-18); C REACTIVE PROTEIN QUANTITATIV < 0.30 MG/DL (0.00-0.30); CALCIUM LEVEL 9.8 MG/DL (8.8-10.2); CARBON DIOXIDE LEVEL 29 MEQ/L (21-32); CHLORIDE LEVEL 107 MEQ/L (98-107); CREATININE FOR GFR 1.34 MG/DL (0.70-1.30); GLOMERULAR FILTRATION RATE 55.8 (>42); GLUCOSE, FASTING 85 MG/DL (70-100); POTASSIUM SERUM 4.4 MEQ/L (3.5-5.1); SODIUM LEVEL 143 MEQ/L (136-145)
[2019-06-17 13:20] LABS: ERYTHROCYTE SEDIMENTATION RATE 8 mm/hr (0-20)
[2019-06-20 00:07] LABS: CRYPTOCOCCUS ANTIGEN SER Positive (Negative)
== END ==
LOC: M SFHCPLAZ 09:59
PROVIDERS: ATTEND Internal Medicine Infectious Disease
DX: B45.7 Disseminated cryptococcosis (principal); N41.1 Chronic prostatitis
CPT/HCPCS: 36415; 80053; 85025; 85652; 86140; 87899; G0103; G0463

== ENCOUNTER → 2019-11-25 | Outpatient (CLI) | payer MEDICARE, OTHER | LOC: M LAB 06:57 | PROVIDERS: ATTEND Urology | DX: R97.20 Elevated prostate specific antigen [PSA] (principal) ==

== ENCOUNTER → 2020-08-26 | Outpatient (CLI) | payer MEDICARE, OTHER ==
[~2020-08-26] MED LIST changes: +CALC-212 PO; -CALC600T7 PO
== END ==
LOC: M LAB 09:33
PROVIDERS: ATTEND Urology
DX: R97.20 Elevated prostate specific antigen [PSA] (principal)

== ENCOUNTER → 2021-01-25 | Outpatient (CLI) | payer MEDICARE, OTHER ==
[~2021-01-25] MED LIST changes: +NAPR-849 PO; -NAPR250T4 PO
[2021-01-25 07:28] LABS: HEMOGLOBIN A1c 5.1 %
== END ==
LOC: M LAB 06:30
PROVIDERS: ATTEND Ophthalmology
DX: H35.60 Retinal hemorrhage, unspecified eye (principal); Z79.899 Other long term (current) drug therapy

== ENCOUNTER → 2022-08-11 | Outpatient (REF) | payer MEDICARE, OTHER ==
[2022-08-11 17:59] LABS: BASO # 0.1 10^3/uL (0.0-0.2); BASO % 0.7 % (0.0-1.0); EOS # 0.2 10^3/uL (0.0-0.5); EOS % 2.7 % (0.0-3.0); HEMATOCRIT 35.3 % (42.0-52.0); LYMPH # 1.1 10^3/uL (1.5-5.0); LYMPH % 15.3 % (24.0-44.0); MEAN CORPUSCULAR HEMOGLOBIN 31.3 pg (27.0-33.0); MEAN CORPUSCULAR HGB CONC 31.2 g/dl (32.0-36.5); MEAN CORPUSCULAR VOLUME 100.3 fl (80.0-96.0); MONO # 0.4 10^3/uL (0.0-0.8); MONO % 6.2 % (2.0-8.0); NEUTROPHILS # 5.1 10^3/uL (1.5-8.5); NEUTROPHILS % 73.8 % (36.0-66.0); PLATELET COUNT, AUTOMATED 185 10^3/uL (150-450); RED BLOOD COUNT 3.52 10^6/uL (4.30-6.10)
[2022-08-11 18:33] LABS: C REACTIVE PROTEIN QUANTITATIV 0.3 MG/DL (0.00-0.30); CALCIUM LEVEL 9.6 MG/DL (8.8-10.2); CREATININE FOR GFR 1.44 MG/DL (0.70-1.30); GLOMERULAR FILTRATION RATE 50.8 (>42); POTASSIUM SERUM 4.4 MEQ/L (3.5-5.1)
[2022-08-11 20:42] LABS: ERYTHROCYTE SEDIMENTATION RATE 56 mm/hr (0-20)
== END ==
LOC: M SFHCRHEU 13:39
PROVIDERS: ATTEND Internal Medicine Rheumatology
DX: R76.8 Other specified abnormal immunological findings in serum (principal); M79.605 Pain in left leg; M35.9 Systemic involvement of connective tissue, unspecified

== ENCOUNTER → 2022-08-16 | Outpatient (CLI) | payer MEDICARE, OTHER | LOC: M LAB 08:58 → M RAD 08:58 | PROVIDERS: ATTEND Internal Medicine Rheumatology | DX: R76.8 Other specified abnormal immunological findings in serum (principal) ==

== ENCOUNTER → 2022-10-05 | Outpatient (CLI) | payer MEDICARE, OTHER | LOC: M SOG 13:14 | PROVIDERS: ATTEND Orthopaedic Surgery | DX: M54.50 Low back pain, unspecified (principal); M79.652 Pain in left thigh ==

== ENCOUNTER → 2022-10-09 | Outpatient (CLI) | payer MEDICARE, OTHER | LOC: M RAD 08:27 | PROVIDERS: ATTEND Orthopaedic Surgery | DX: M47.16 Other spondylosis with myelopathy, lumbar region (principal) ==

== ENCOUNTER → 2023-05-15 | Outpatient (CLI) | payer MEDICARE, OTHER | LOC: M WUC 13:27 | PROVIDERS: ATTEND Internal Medicine | DX: M19.042 Primary osteoarthritis, left hand (principal); M89.8X8 Other specified disorders of bone, other site ==

== ENCOUNTER → 2023-06-02 | Outpatient (REF) | payer MEDICARE, OTHER | LOC: M LAB REF 10:52 | PROVIDERS: ATTEND Internal Medicine | DX: R19.7 Diarrhea, unspecified (principal) ==

== ENCOUNTER → 2023-07-20 | Outpatient (CLI) | payer MEDICARE, OTHER | LOC: M WUC 10:21 | PROVIDERS: ATTEND Physician Assistant | DX: M1A.0421 Idiopathic chronic gout, left hand, with tophus (tophi) (principal) ==

== ENCOUNTER 2023-11-12 09:00 | Inpatient (IN) | payer MEDICARE, OTHER ==
[~2023-11-12] VITALS: Ht 172.7 cm; Wt 76.0 kg
[2023-11-12 09:25] LABS: VENOUS BASE EXCESS 0.4 (-2.0-2.0); VENOUS HCO3 26.3 MMOL/L (23.0-27.0); VENOUS O2 SATURATION 35.2 % (60.0-80.0); VENOUS PARTIAL PRESSURE CO2 47.3 mmHg (38.0-50.0); VENOUS PARTIAL PRESSURE O2 22.8 mmHg (30.0-50.0); VENOUS PH 7.363 UNITS (7.330-7.430); VENOUS STANDARD HCO3 23.3 MMOL/L; VENOUS TOTAL CO2 27.8 MMOL/L (24.0-28.0)
[2023-11-12] MEDS ORDERED: LIDOCAINE 2% 5ML JELLY UROJET TOP ONE (09:25)
[2023-11-12] MEDS ORDERED: NS 500 ML IV ONE (09:25)
[2023-11-12 09:42] LABS: BASO % 0.2 % (0.0-1.0); HEMATOCRIT 42.8 % (42.0-52.0); HEMOGLOBIN 14.1 g/dl (13.5-17.5); LYMPH # 0.6 10^3/uL (1.5-5.0); LYMPH % 4.6 % (24.0-44.0); MEAN CORPUSCULAR HEMOGLOBIN 29.9 pg (27.0-33.0); MEAN CORPUSCULAR HGB CONC 32.9 g/dl (32.0-36.5); MEAN CORPUSCULAR VOLUME 90.7 fl (80.0-96.0); MONO # 0.7 10^3/uL (0.0-0.8); MONO % 5.9 % (2.0-8.0); NEUTROPHILS # 10.9 10^3/uL (1.5-8.5); NEUTROPHILS % 88.5 % (36.0-66.0); PLATELET COUNT, AUTOMATED 232 10^3/uL (150-450); RED BLOOD COUNT 4.72 10^6/uL (4.30-6.10); WHITE BLOOD COUNT 12.3 10^3/uL (4.0-10.0)
[2023-11-12] MEDS ORDERED: ISOVUE-370 76% 100ML VIAL As Ordered ONE (09:42)
[2023-11-12 09:59] LABS: ETHYL ALCOHOL (ETHANOL) < 0.003 % (0.000-0.010)
[2023-11-12 10:00] LABS: CPK CREATINE PHOSPHOKINASE 536 U/L (46-171)
[2023-11-12 10:01] LABS: ALBUMIN 3.5 G/DL (3.2-5.2); ALKALINE PHOSPHATASE 109 U/L (46-116); ALT/SGPT 34 U/L (7.0-40); AST/SGOT 52 U/L (<34); BILIRUBIN,DIRECT 1.1 MG/DL (<0.4); BILIRUBIN,TOTAL 2.8 MG/DL (0.3-1.2); BLOOD UREA NITROGEN 36 MG/DL (9-23); CALCIUM LEVEL 9.6 MG/DL (8.3-10.6); CARBON DIOXIDE LEVEL 28 MMOL/L (20-31); CHLORIDE LEVEL 108 MMOL/L (98-107); CK-MB VALUE MASS 3.4 NG/ML (<3.6); CREATININE FOR GFR 1.07 MG/DL (0.70-1.30); GLOMERULAR FILTRATION RATE > 60.0 (>42); GLUCOSE, FASTING 153 MG/DL (74-106); MB/CK RELATIVE INDEX 0.63 (< OR =4); POTASSIUM SERUM 4.1 MMOL/L (3.5-5.1); SALICYLATE LEVEL < 3.0 MG/DL (<30); SODIUM LEVEL 146 MMOL/L (136-145); TOTAL PROTEIN 6.8 G/DL (5.7-8.2)
[2023-11-12 10:01] LABS: RSV AMPLIFICATION NEGATIVE (NEGATIVE)
[2023-11-12 10:03] LABS: THYROID STIMULATING HORMONE 4.228 uIU/ML (0.55-4.78)
[2023-11-12 10:32] LABS: ABG HCO3 21.9 MMOL/L (22.0-26.0); ABG O2 SATURATION 96.3 % (95.0-99.0); ABG PARTIAL PRESSURE CO2 28.2 mmHg (35.0-45.0); ABG PARTIAL PRESSURE O2 86.9 mmHg (75.0-100.0); ABG STANDARD HCO3 24.4 MMOL/L. (22.0-26.0); ABG TOTAL CO2 22.8 MMOL/L (23.0-31.0); ABG pH (ARTERIAL) 7.508 UNITS (7.350-7.450)
[2023-11-12 10:49] LABS: CK-MB VALUE MASS 3.6 NG/ML (<3.6)
[2023-11-12 10:51] LABS: MB/CK RELATIVE INDEX 0.74 (< OR =4)
[2023-11-12] MEDS ORDERED: NS 1,000 ML IV ONE (12:15)
[2023-11-12] MEDS ORDERED: BOOSTRIX VACCINE (TETANUS/DIPHTH/ACEL. PERTUSSIS) 0.5ML SYR IM.IMMUN ONE (12:20)
[2023-11-12] MEDS ORDERED: PIPERACILLIN/TAZOBACTAM SOD 4.5 GM in D5W MINI-BAG PLUS 50 ML IV ONE (12:25)
[2023-11-12] MEDS ORDERED: ALLO100T PO (12:27)
[2023-11-12] MEDS ORDERED: QUET50TA4 PO (12:27)
[2023-11-12] MEDS ORDERED: GABA600T4 PO (12:27)
[2023-11-12] MEDS ORDERED: FINA5TAB2 PO (12:27)
[2023-11-12] MEDS ORDERED: HOME MED LIST COMPLETE! XX SCH (12:30)
[2023-11-12] MEDS: NS 0.45% 1,000 ML IV SCH (15:15)
[2023-11-12] MEDS: TAMSULOSIN 0.4 MG CAP PO SCH (15:23)
[2023-11-12] MEDS: FINASTERIDE 5MG TAB PO SCH (15:23)
[2023-11-12] MEDS: ATORVASTATIN 20 MG TAB PO SCH (15:23)
[2023-11-12] MEDS: allopurinoL 100 MG TAB PO SCH (15:24)
[2023-11-12 15:30] LABS: INR 1.24; PROTHROMBIN TIME 15.2 SECONDS (12.5-14.5)
[2023-11-12] MEDS: GABAPENTIN 300 MG CAP PO SCH ×2 (16:00→20:56)
[2023-11-12] MEDS: QUEtiapine FUMARATE 50MG TAB PO SCH (20:56)
[2023-11-12] MEDS: ENOXAPARIN 40MG/0.4ML SYRINGE (J1650 PER 10MG) SC SCH (20:56)
[2023-11-12] MEDS: LATANOPROST 0.005% OPHTH SOLN 2.5 ML OU SCH (21:07)
[2023-11-12 22:01] VITALS: BP 118/66; TEMP 99.6; O2SAT 97
[2023-11-13] MEDS: NS 0.45% 1,000 ML IV SCH (01:21)
[2023-11-13 06:00] VITALS: BP 128/62; TEMP 97.3; O2SAT 93
[2023-11-13 06:19] LABS: HEMATOCRIT 34.7 % (42.0-52.0); HEMOGLOBIN 11.3 g/dl (13.5-17.5); MEAN CORPUSCULAR HEMOGLOBIN 30.2 pg (27.0-33.0); MEAN CORPUSCULAR HGB CONC 32.6 g/dl (32.0-36.5); MEAN CORPUSCULAR VOLUME 92.8 fl (80.0-96.0); PLATELET COUNT, AUTOMATED 150 10^3/uL (150-450); RED BLOOD COUNT 3.74 10^6/uL (4.30-6.10); WHITE BLOOD COUNT 7.8 10^3/uL (4.0-10.0)
[2023-11-13 06:50] LABS: ALBUMIN 2.4 G/DL (3.2-5.2); ALKALINE PHOSPHATASE 75 U/L (46-116); ALT/SGPT 25 U/L (7.0-40); AST/SGOT 43 U/L (<34); BILIRUBIN,TOTAL 1.6 MG/DL (0.3-1.2); BLOOD UREA NITROGEN 29 MG/DL (9-23); CALCIUM LEVEL 8.2 MG/DL (8.3-10.6); CARBON DIOXIDE LEVEL 25 MMOL/L (20-31); CHLORIDE LEVEL 114 MMOL/L (98-107); CREATININE FOR GFR 1.01 MG/DL (0.70-1.30); GLOMERULAR FILTRATION RATE > 60.0 (>42); GLUCOSE, FASTING 80 MG/DL (74-106); MAGNESIUM LEVEL 1.9 MG/DL (1.8-2.4); POTASSIUM SERUM 3.3 MMOL/L (3.5-5.1); SODIUM LEVEL 148 MMOL/L (136-145); TOTAL PROTEIN 4.9 G/DL (5.7-8.2)
[2023-11-13] MEDS ORDERED: POTASSIUM CHLORIDE 10MEQ SR TABLET PO ONE (09:00)
[2023-11-13] MEDS: ATORVASTATIN 20 MG TAB PO SCH (09:47)
[2023-11-13] MEDS: FINASTERIDE 5MG TAB PO SCH (09:47)
[2023-11-13] MEDS: TAMSULOSIN 0.4 MG CAP PO SCH (09:47)
[2023-11-13] MEDS: GABAPENTIN 300 MG CAP PO SCH ×3 (09:47→20:41)
[2023-11-13] MEDS: allopurinoL 100 MG TAB PO SCH (09:47)
[2023-11-13] MEDS: D5W 1,000 ML IV SCH ×2 (09:47→23:10)
[2023-11-13 14:00] VITALS: BP 108/42; TEMP 98.1; O2SAT 95
[2023-11-13 19:43] VITALS: BP 114/52; TEMP 99.4; O2SAT 94
[2023-11-13] MEDS: ENOXAPARIN 40MG/0.4ML SYRINGE (J1650 PER 10MG) SC SCH (20:42)
[2023-11-13] MEDS: QUEtiapine FUMARATE 50MG TAB PO SCH (20:42)
[2023-11-13] MEDS: LATANOPROST 0.005% OPHTH SOLN 2.5 ML OU SCH (20:42)
[2023-11-14 06:00] VITALS: BP 115/60; TEMP 97.3; O2SAT 94
[2023-11-14 06:33] LABS: HEMATOCRIT 34.6 % (42.0-52.0); HEMOGLOBIN 11.5 g/dl (13.5-17.5); MEAN CORPUSCULAR HEMOGLOBIN 29.9 pg (27.0-33.0); MEAN CORPUSCULAR HGB CONC 33.2 g/dl (32.0-36.5); MEAN CORPUSCULAR VOLUME 90.1 fl (80.0-96.0); PLATELET COUNT, AUTOMATED 158 10^3/uL (150-450); RED BLOOD COUNT 3.84 10^6/uL (4.30-6.10); WHITE BLOOD COUNT 7.2 10^3/uL (4.0-10.0)
[2023-11-14 07:09] LABS: CPK CREATINE PHOSPHOKINASE 263 U/L (46-171)
[2023-11-14 07:10] LABS: ALBUMIN 2.3 G/DL (3.2-5.2); ALKALINE PHOSPHATASE 83 U/L (46-116); ALT/SGPT 38 U/L (7.0-40); AST/SGOT 55 U/L (<34); BILIRUBIN,TOTAL 1.3 MG/DL (0.3-1.2); BLOOD UREA NITROGEN 23 MG/DL (9-23); CALCIUM LEVEL 7.9 MG/DL (8.3-10.6); CARBON DIOXIDE LEVEL 25 MMOL/L (20-31); CHLORIDE LEVEL 107 MMOL/L (98-107); CREATININE FOR GFR 1.06 MG/DL (0.70-1.30); GLOMERULAR FILTRATION RATE > 60.0 (>42); GLUCOSE, FASTING 124 MG/DL (74-106); MAGNESIUM LEVEL 1.6 MG/DL (1.8-2.4); POTASSIUM SERUM 3.8 MMOL/L (3.5-5.1); SODIUM LEVEL 139 MMOL/L (136-145); TOTAL PROTEIN 4.8 G/DL (5.7-8.2)
[2023-11-14] MEDS: GABAPENTIN 300 MG CAP PO SCH ×3 (10:28→20:44)
[2023-11-14] MEDS: TAMSULOSIN 0.4 MG CAP PO SCH (10:28)
[2023-11-14] MEDS: allopurinoL 100 MG TAB PO SCH (10:28)
[2023-11-14] MEDS: FINASTERIDE 5MG TAB PO SCH (10:29)
[2023-11-14 11:14] LABS: VENOUS BASE EXCESS -2.1 (-2.0-2.0); VENOUS HCO3 21.6 MMOL/L (23.0-27.0); VENOUS O2 SATURATION 98.7 % (60.0-80.0); VENOUS PARTIAL PRESSURE CO2 33.9 mmHg (38.0-50.0); VENOUS PARTIAL PRESSURE O2 206.4 mmHg (30.0-50.0); VENOUS PH 7.423 UNITS (7.330-7.430); VENOUS STANDARD HCO3 22.7 MMOL/L; VENOUS TOTAL CO2 22.7 MMOL/L (24.0-28.0)
[2023-11-14 14:00] VITALS: BP 101/50; TEMP 98.1; O2SAT 94
[2023-11-14 19:48] LABS: C REACTIVE PROTEIN QUANTITATIV 9.3 MG/DL (<1.0)
[2023-11-14 20:02] LABS: PROCALCITONIN 0.15 ng/ml
[2023-11-14] MEDS: QUEtiapine FUMARATE 50MG TAB PO SCH (20:44)
[2023-11-14] MEDS: LATANOPROST 0.005% OPHTH SOLN 2.5 ML OU SCH (20:45)
[2023-11-14] MEDS: ENOXAPARIN 40MG/0.4ML SYRINGE (J1650 PER 10MG) SC SCH (20:45)
[2023-11-14 22:00] VITALS: BP 100/43; TEMP 98.1; O2SAT 95
[2023-11-15 05:52] LABS: HEMATOCRIT 37.1 % (42.0-52.0); HEMOGLOBIN 12.4 g/dl (13.5-17.5); MEAN CORPUSCULAR HEMOGLOBIN 29.7 pg (27.0-33.0); MEAN CORPUSCULAR HGB CONC 33.4 g/dl (32.0-36.5); MEAN CORPUSCULAR VOLUME 88.8 fl (80.0-96.0); PLATELET COUNT, AUTOMATED 147 10^3/uL (150-450); RED BLOOD COUNT 4.18 10^6/uL (4.30-6.10); WHITE BLOOD COUNT 5.7 10^3/uL (4.0-10.0)
[2023-11-15 06:00] VITALS: BP 94/57; TEMP 98.2; O2SAT 92
[2023-11-15 06:22] LABS: ALBUMIN 2.4 G/DL (3.2-5.2); ALKALINE PHOSPHATASE 87 U/L (46-116); ALT/SGPT 37 U/L (7.0-40); AST/SGOT 48 U/L (<34); BILIRUBIN,TOTAL 1.3 MG/DL (0.3-1.2); BLOOD UREA NITROGEN 17 MG/DL (9-23); CALCIUM LEVEL 8.4 MG/DL (8.3-10.6); CARBON DIOXIDE LEVEL 26 MMOL/L (20-31); CHLORIDE LEVEL 103 MMOL/L (98-107); CREATININE FOR GFR 0.98 MG/DL (0.70-1.30); GLOMERULAR FILTRATION RATE > 60.0 (>42); GLUCOSE, FASTING 94 MG/DL (74-106); MAGNESIUM LEVEL 1.7 MG/DL (1.8-2.4); POTASSIUM SERUM 3.9 MMOL/L (3.5-5.1); SODIUM LEVEL 137 MMOL/L (136-145); TOTAL PROTEIN 5.1 G/DL (5.7-8.2)
[2023-11-15 07:19] VITALS: BP 98/60
[2023-11-15] MEDS: GABAPENTIN 300 MG CAP PO SCH ×3 (08:45→20:20)
[2023-11-15] MEDS: TAMSULOSIN 0.4 MG CAP PO SCH (08:45)
[2023-11-15] MEDS: FINASTERIDE 5MG TAB PO SCH (08:45)
[2023-11-15] MEDS: allopurinoL 100 MG TAB PO SCH (08:45)
[2023-11-15] MEDS: predniSONE 20 MG TAB PO SCH (08:46)
[2023-11-15 14:20] VITALS: BP 119/51; TEMP 97.9; O2SAT 98
[2023-11-15 15:12] LABS: CRYPTOCOCCUS ANTIGEN SER Positive (Negative)
[2023-11-15] MEDS: LATANOPROST 0.005% OPHTH SOLN 2.5 ML OU SCH (20:20)
[2023-11-15] MEDS: QUEtiapine FUMARATE 50MG TAB PO SCH (20:20)
[2023-11-15] MEDS: ENOXAPARIN 40MG/0.4ML SYRINGE (J1650 PER 10MG) SC SCH (20:20)
[2023-11-16 04:47] VITALS: BP 118/52; TEMP 97.9; O2SAT 96
[2023-11-16 06:18] LABS: HEMATOCRIT 38.9 % (42.0-52.0); MEAN CORPUSCULAR HEMOGLOBIN 29.8 pg (27.0-33.0); MEAN CORPUSCULAR HGB CONC 33.4 g/dl (32.0-36.5); MEAN CORPUSCULAR VOLUME 89.2 fl (80.0-96.0); PLATELET COUNT, AUTOMATED 172 10^3/uL (150-450); RED BLOOD COUNT 4.36 10^6/uL (4.30-6.10); WHITE BLOOD COUNT 6.5 10^3/uL (4.0-10.0)
[2023-11-16 06:36] LABS: ALBUMIN 2.4 G/DL (3.2-5.2); ALKALINE PHOSPHATASE 96 U/L (46-116); ALT/SGPT 36 U/L (7.0-40); AST/SGOT 41 U/L (<34); BILIRUBIN,TOTAL 0.9 MG/DL (0.3-1.2); BLOOD UREA NITROGEN 25 MG/DL (9-23); CALCIUM LEVEL 8.6 MG/DL (8.3-10.6); CARBON DIOXIDE LEVEL 28 MMOL/L (20-31); CHLORIDE LEVEL 106 MMOL/L (98-107); CREATININE FOR GFR 1.04 MG/DL (0.70-1.30); GLOMERULAR FILTRATION RATE > 60.0 (>42); GLUCOSE, FASTING 112 MG/DL (74-106); MAGNESIUM LEVEL 1.8 MG/DL (1.8-2.4); POTASSIUM SERUM 3.9 MMOL/L (3.5-5.1); SODIUM LEVEL 140 MMOL/L (136-145); TOTAL PROTEIN 5.4 G/DL (5.7-8.2)
[2023-11-16] MEDS: TAMSULOSIN 0.4 MG CAP PO SCH (09:10)
[2023-11-16] MEDS: predniSONE 20 MG TAB PO SCH (09:10)
[2023-11-16] MEDS: FINASTERIDE 5MG TAB PO SCH (09:10)
[2023-11-16] MEDS: GABAPENTIN 300 MG CAP PO SCH ×3 (09:10→19:52)
[2023-11-16] MEDS: allopurinoL 100 MG TAB PO SCH (09:11)
[2023-11-16] MEDS: QUEtiapine FUMARATE 50MG TAB PO SCH (19:52)
[2023-11-16] MEDS: LATANOPROST 0.005% OPHTH SOLN 2.5 ML OU SCH (19:53)
[2023-11-16] MEDS: ENOXAPARIN 40MG/0.4ML SYRINGE (J1650 PER 10MG) SC SCH (19:53)
[2023-11-17 04:46] VITALS: BP 119/52; TEMP 97.7; O2SAT 97
[2023-11-17 05:58] LABS: HEMATOCRIT 39.3 % (42.0-52.0); MEAN CORPUSCULAR HEMOGLOBIN 29.1 pg (27.0-33.0); MEAN CORPUSCULAR HGB CONC 33.1 g/dl (32.0-36.5); MEAN CORPUSCULAR VOLUME 88.1 fl (80.0-96.0); PLATELET COUNT, AUTOMATED 177 10^3/uL (150-450); RED BLOOD COUNT 4.46 10^6/uL (4.30-6.10); WHITE BLOOD COUNT 6.9 10^3/uL (4.0-10.0)
[2023-11-17 06:22] LABS: ALBUMIN 2.4 G/DL (3.2-5.2); ALKALINE PHOSPHATASE 105 U/L (46-116); ALT/SGPT 41 U/L (7.0-40); AST/SGOT 39 U/L (<34); BILIRUBIN,TOTAL 0.7 MG/DL (0.3-1.2); BLOOD UREA NITROGEN 27 MG/DL (9-23); CALCIUM LEVEL 8.7 MG/DL (8.3-10.6); CARBON DIOXIDE LEVEL 32 MMOL/L (20-31); CHLORIDE LEVEL 105 MMOL/L (98-107); CREATININE FOR GFR 0.96 MG/DL (0.70-1.30); GLOMERULAR FILTRATION RATE > 60.0 (>42); GLUCOSE, FASTING 110 MG/DL (74-106); MAGNESIUM LEVEL 1.8 MG/DL (1.8-2.4); POTASSIUM SERUM 4.3 MMOL/L (3.5-5.1); SODIUM LEVEL 141 MMOL/L (136-145); TOTAL PROTEIN 5.4 G/DL (5.7-8.2)
[2023-11-17] MEDS: GABAPENTIN 300 MG CAP PO SCH ×3 (09:15→20:54)
[2023-11-17] MEDS: allopurinoL 100 MG TAB PO SCH (09:16)
[2023-11-17] MEDS: FINASTERIDE 5MG TAB PO SCH (09:16)
[2023-11-17] MEDS: predniSONE 20 MG TAB PO SCH (09:16)
[2023-11-17] MEDS: TAMSULOSIN 0.4 MG CAP PO SCH (09:16)
[2023-11-17] MEDS: LATANOPROST 0.005% OPHTH SOLN 2.5 ML OU SCH (20:54)
[2023-11-17] MEDS: ENOXAPARIN 40MG/0.4ML SYRINGE (J1650 PER 10MG) SC SCH (20:54)
[2023-11-17] MEDS: QUEtiapine FUMARATE 50MG TAB PO SCH (20:54)
[2023-11-18 06:00] VITALS: BP 116/53; TEMP 97.5; O2SAT 94
[2023-11-18] MEDS: predniSONE 20 MG TAB PO SCH (09:22)
[2023-11-18] MEDS: GABAPENTIN 300 MG CAP PO SCH ×3 (09:22→20:13)
[2023-11-18] MEDS: allopurinoL 100 MG TAB PO SCH (09:22)
[2023-11-18] MEDS: FINASTERIDE 5MG TAB PO SCH (09:22)
[2023-11-18] MEDS: TAMSULOSIN 0.4 MG CAP PO SCH (09:22)
[2023-11-18] MEDS: ENOXAPARIN 40MG/0.4ML SYRINGE (J1650 PER 10MG) SC SCH (20:13)
[2023-11-18] MEDS: LATANOPROST 0.005% OPHTH SOLN 2.5 ML OU SCH (20:13)
[2023-11-18] MEDS: QUEtiapine FUMARATE 50MG TAB PO SCH (20:13)
[2023-11-19 06:00] VITALS: BP 116/52; TEMP 97.9; O2SAT 96
[2023-11-19] MEDS: TAMSULOSIN 0.4 MG CAP PO SCH (08:09)
[2023-11-19] MEDS: predniSONE 20 MG TAB PO SCH (08:09)
[2023-11-19] MEDS: GABAPENTIN 300 MG CAP PO SCH ×3 (08:09→20:32)
[2023-11-19] MEDS: FINASTERIDE 5MG TAB PO SCH (08:12)
[2023-11-19] MEDS: allopurinoL 100 MG TAB PO SCH (08:12)
[2023-11-19] MEDS: QUEtiapine FUMARATE 50MG TAB PO SCH (20:32)
[2023-11-19] MEDS: LATANOPROST 0.005% OPHTH SOLN 2.5 ML OU SCH (20:32)
[2023-11-19] MEDS: ENOXAPARIN 40MG/0.4ML SYRINGE (J1650 PER 10MG) SC SCH (20:32)
[2023-11-20 06:00] VITALS: BP 116/57; TEMP 97.3; O2SAT 96
[2023-11-20] MEDS: GABAPENTIN 300 MG CAP PO SCH ×3 (09:32→20:10)
[2023-11-20] MEDS: TAMSULOSIN 0.4 MG CAP PO SCH (09:32)
[2023-11-20] MEDS: FINASTERIDE 5MG TAB PO SCH (09:32)
[2023-11-20] MEDS: predniSONE 20 MG TAB PO SCH (09:32)
[2023-11-20] MEDS: allopurinoL 100 MG TAB PO SCH (09:32)
[2023-11-20] MEDS: ENOXAPARIN 40MG/0.4ML SYRINGE (J1650 PER 10MG) SC SCH (20:10)
[2023-11-20] MEDS: QUEtiapine FUMARATE 50MG TAB PO SCH (20:10)
[2023-11-20] MEDS: LATANOPROST 0.005% OPHTH SOLN 2.5 ML OU SCH (20:11)
[2023-11-21 05:48] VITALS: BP 124/55; TEMP 97.9; O2SAT 97
[2023-11-21] MEDS: allopurinoL 100 MG TAB PO SCH (10:51)
[2023-11-21] MEDS: GABAPENTIN 300 MG CAP PO SCH ×3 (10:51→19:59)
[2023-11-21] MEDS: predniSONE 20 MG TAB PO SCH (10:52)
[2023-11-21] MEDS: FINASTERIDE 5MG TAB PO SCH (10:52)
[2023-11-21] MEDS: TAMSULOSIN 0.4 MG CAP PO SCH (10:52)
[2023-11-21] MEDS: OLANZapine 5 MG TAB PO SCH (16:13)
[2023-11-21] MEDS: RAMELTEON 8 MG TAB (ROZEREM) PO SCH (19:59)
[2023-11-21] MEDS: QUEtiapine FUMARATE 50MG TAB PO SCH (19:59)
[2023-11-21] MEDS: ENOXAPARIN 40MG/0.4ML SYRINGE (J1650 PER 10MG) SC SCH (19:59)
[2023-11-21] MEDS: LATANOPROST 0.005% OPHTH SOLN 2.5 ML OU SCH (20:01)
[2023-11-22 05:44] VITALS: BP 128/56; TEMP 97.5; O2SAT 96
[2023-11-22] MEDS: FINASTERIDE 5MG TAB PO SCH (10:23)
[2023-11-22] MEDS: TAMSULOSIN 0.4 MG CAP PO SCH (10:23)
[2023-11-22] MEDS: predniSONE 20 MG TAB PO SCH (10:23)
[2023-11-22] MEDS: GABAPENTIN 300 MG CAP PO SCH ×3 (10:23→21:08)
[2023-11-22] MEDS: allopurinoL 100 MG TAB PO SCH (10:23)
[2023-11-22] MEDS: OLANZapine 5 MG TAB PO SCH (10:24)
[2023-11-22] MEDS: ENOXAPARIN 40MG/0.4ML SYRINGE (J1650 PER 10MG) SC SCH (21:08)
[2023-11-22] MEDS: RAMELTEON 8 MG TAB (ROZEREM) PO SCH (21:08)
[2023-11-22] MEDS: QUEtiapine FUMARATE 50MG TAB PO SCH (21:09)
[2023-11-22] MEDS: LATANOPROST 0.005% OPHTH SOLN 2.5 ML OU SCH (21:09)
[2023-11-23 06:00] VITALS: BP 127/53; TEMP 97.5; O2SAT 98
[2023-11-23] MEDS: TAMSULOSIN 0.4 MG CAP PO SCH (08:58)
[2023-11-23] MEDS: GABAPENTIN 300 MG CAP PO SCH ×3 (08:58→20:06)
[2023-11-23] MEDS: allopurinoL 100 MG TAB PO SCH (08:58)
[2023-11-23] MEDS: predniSONE 20 MG TAB PO SCH (08:58)
[2023-11-23] MEDS: FINASTERIDE 5MG TAB PO SCH (08:59)
[2023-11-23] MEDS: OLANZapine 5 MG TAB PO SCH (08:59)
[2023-11-23] MEDS: RAMELTEON 8 MG TAB (ROZEREM) PO SCH (20:06)
[2023-11-23] MEDS: QUEtiapine FUMARATE 50MG TAB PO SCH (20:06)
[2023-11-23] MEDS: ENOXAPARIN 40MG/0.4ML SYRINGE (J1650 PER 10MG) SC SCH (20:07)
[2023-11-23] MEDS: LATANOPROST 0.005% OPHTH SOLN 2.5 ML OU SCH (20:20)
[2023-11-24 06:00] VITALS: BP 125/69; TEMP 96.8; O2SAT 95
[2023-11-24] MEDS: FINASTERIDE 5MG TAB PO SCH (11:13)
[2023-11-24] MEDS: OLANZapine 5 MG TAB PO SCH (11:13)
[2023-11-24] MEDS: TAMSULOSIN 0.4 MG CAP PO SCH (11:13)
[2023-11-24] MEDS: predniSONE 20 MG TAB PO SCH (11:13)
[2023-11-24] MEDS: GABAPENTIN 300 MG CAP PO SCH ×3 (11:13→21:35)
[2023-11-24] MEDS: allopurinoL 100 MG TAB PO SCH (11:13)
[2023-11-24] MEDS: RAMELTEON 8 MG TAB (ROZEREM) PO SCH (21:35)
[2023-11-24] MEDS: ENOXAPARIN 40MG/0.4ML SYRINGE (J1650 PER 10MG) SC SCH (21:36)
[2023-11-24] MEDS: LATANOPROST 0.005% OPHTH SOLN 2.5 ML OU SCH (21:36)
[2023-11-24] MEDS: QUEtiapine FUMARATE 50MG TAB PO SCH (21:36)
[2023-11-25 05:52] VITALS: BP 124/79; TEMP 96.8; O2SAT 97
[2023-11-25] MEDS: predniSONE 20 MG TAB PO SCH (08:09)
[2023-11-25] MEDS: OLANZapine 5 MG TAB PO SCH (08:09)
[2023-11-25] MEDS: TAMSULOSIN 0.4 MG CAP PO SCH (08:09)
[2023-11-25] MEDS: allopurinoL 100 MG TAB PO SCH (08:09)
[2023-11-25] MEDS: FINASTERIDE 5MG TAB PO SCH (08:09)
[2023-11-25] MEDS: GABAPENTIN 300 MG CAP PO SCH ×3 (08:09→20:52)
[2023-11-25] MEDS ORDERED: SENOKOT S TAB PO PRN (11:45)
[2023-11-25] MEDS: RAMELTEON 8 MG TAB (ROZEREM) PO SCH (20:52)
[2023-11-25] MEDS: ENOXAPARIN 40MG/0.4ML SYRINGE (J1650 PER 10MG) SC SCH (20:53)
[2023-11-25] MEDS: LATANOPROST 0.005% OPHTH SOLN 2.5 ML OU SCH (20:53)
[2023-11-25] MEDS: QUEtiapine FUMARATE 50MG TAB PO SCH (20:53)
[2023-11-26 06:44] VITALS: BP 118/58; TEMP 97; O2SAT 98
[2023-11-26] MEDS: predniSONE 20 MG TAB PO SCH (08:29)
[2023-11-26] MEDS: TAMSULOSIN 0.4 MG CAP PO SCH (08:29)
[2023-11-26] MEDS: GABAPENTIN 300 MG CAP PO SCH ×3 (08:29→20:24)
[2023-11-26] MEDS: allopurinoL 100 MG TAB PO SCH (08:30)
[2023-11-26] MEDS: OLANZapine 5 MG TAB PO SCH (08:30)
[2023-11-26] MEDS: FINASTERIDE 5MG TAB PO SCH (08:30)
[2023-11-26] MEDS: QUEtiapine FUMARATE 50MG TAB PO SCH (20:24)
[2023-11-26] MEDS: RAMELTEON 8 MG TAB (ROZEREM) PO SCH (20:24)
[2023-11-26] MEDS: LATANOPROST 0.005% OPHTH SOLN 2.5 ML OU SCH (20:24)
[2023-11-26] MEDS: ENOXAPARIN 40MG/0.4ML SYRINGE (J1650 PER 10MG) SC SCH (20:24)
[2023-11-27 06:00] VITALS: BP 124/60; TEMP 97.7; O2SAT 96
[2023-11-27] MEDS: FINASTERIDE 5MG TAB PO SCH (09:52)
[2023-11-27] MEDS: GABAPENTIN 300 MG CAP PO SCH (09:52)
[2023-11-27] MEDS: OLANZapine 5 MG TAB PO SCH (09:53)
[2023-11-27] MEDS: predniSONE 20 MG TAB PO SCH (09:53)
[2023-11-27] MEDS: allopurinoL 100 MG TAB PO SCH (09:53)
[2023-11-27] MEDS: TAMSULOSIN 0.4 MG CAP PO SCH (09:53)
== END 2023-11-27 15:15 | disposition home or self-care (01) | DRG 884 ==
LOC: M ED 09:00 → EDBD 09:00 → M ED INP 14:52 → M MSPAV 22:01
PROVIDERS: ADMIT Family Medicine; ATTEND Internal Medicine
DX: F03.C3 Unspecified dementia, severe, with mood disturbance (principal); G93.41 Metabolic encephalopathy; K76.6 Portal hypertension; E87.0 Hyperosmolality and hypernatremia; E87.20 Acidosis, unspecified; E87.1 Hypo-osmolality and hyponatremia; I10 Essential (primary) hypertension; E78.5 Hyperlipidemia, unspecified; M06.9 Rheumatoid arthritis, unspecified; Z66 Do not resuscitate; R97.20 Elevated prostate specific antigen [PSA]; N41.1 Chronic prostatitis; M10.9 Gout, unspecified; K74.60 Unspecified cirrhosis of liver; N40.1 Benign prostatic hyperplasia with lower urinary tract symptoms; D69.6 Thrombocytopenia, unspecified; R91.8 Other nonspecific abnormal finding of lung field; I25.10 Atherosclerotic heart disease of native coronary artery without angina pectoris; E87.6 Hypokalemia; R33.9 Retention of urine, unspecified; R26.89 Other abnormalities of gait and mobility; G62.9 Polyneuropathy, unspecified; Z95.1 Presence of aortocoronary bypass graft; Z87.442 Personal history of urinary calculi; Z96.653 Presence of artificial knee joint, bilateral; Z87.891 Personal history of nicotine dependence; Z79.899 Other long term (current) drug therapy

== ENCOUNTER 2023-12-03 10:50 | Emergency (ER) | payer MEDICARE, OTHER ==
[~2023-12-03] VITALS: Ht 167.6 cm; Wt 78.2 kg
[~2023-12-03 10:50] MED LIST changes: +ALLO100T PO; +FINA5TAB2 PO; +GABA600T4 PO; +QUET50TA4 PO
[2023-12-03 11:45] LABS: BASO % 0.2 % (0.0-1.0); EOS # 0.1 10^3/uL (0.0-0.5); EOS % 1.3 % (0.0-3.0); HEMATOCRIT 41.4 % (42.0-52.0); HEMOGLOBIN 13.7 g/dl (13.5-17.5); LYMPH # 0.8 10^3/uL (1.5-5.0); LYMPH % 7.7 % (24.0-44.0); MEAN CORPUSCULAR HEMOGLOBIN 29.8 pg (27.0-33.0); MEAN CORPUSCULAR HGB CONC 33.1 g/dl (32.0-36.5); MONO # 0.5 10^3/uL (0.0-0.8); MONO % 5.2 % (2.0-8.0); NEUTROPHILS # 8.7 10^3/uL (1.5-8.5); NEUTROPHILS % 84.3 % (36.0-66.0); PLATELET COUNT, AUTOMATED 131 10^3/uL (150-450); WHITE BLOOD COUNT 10.3 10^3/uL (4.0-10.0)
[2023-12-03 12:04] LABS: CK-MB VALUE MASS 5.3 NG/ML (<3.6)
[2023-12-03 12:06] LABS: BLOOD UREA NITROGEN 25 MG/DL (9-23); CALCIUM LEVEL 8.6 MG/DL (8.3-10.6); CARBON DIOXIDE LEVEL 28 MMOL/L (20-31); CHLORIDE LEVEL 104 MMOL/L (98-107); GLOMERULAR FILTRATION RATE > 60.0 (>42); GLUCOSE, FASTING 164 MG/DL (74-106); POTASSIUM SERUM 4.1 MMOL/L (3.5-5.1); SODIUM LEVEL 137 MMOL/L (136-145)
[2023-12-03 12:14] LABS: CPK CREATINE PHOSPHOKINASE 518 U/L (46-171); MB/CK RELATIVE INDEX 1.02 (< OR =4)
[2023-12-03 13:08] LABS: CK-MB VALUE MASS 4.8 NG/ML (<3.6)
[2023-12-03 13:09] LABS: MB/CK RELATIVE INDEX 0.95 (< OR =4)
[2023-12-03 14:01] VITALS: BP 143/63; TEMP 96.5; O2SAT 99
== END 2023-12-03 14:30 | disposition home or self-care (01) ==
LOC: EDBD 10:50 → M ED 13:59
DX: R07.89 Other chest pain (principal); Z86.19 Personal history of other infectious and parasitic diseases; K80.20 Calculus of gallbladder without cholecystitis without obstruction; I51.7 Cardiomegaly; R91.8 Other nonspecific abnormal finding of lung field; I25.10 Atherosclerotic heart disease of native coronary artery without angina pectoris; I10 Essential (primary) hypertension; E78.5 Hyperlipidemia, unspecified; R91.1 Solitary pulmonary nodule; Z87.442 Personal history of urinary calculi; Z95.1 Presence of aortocoronary bypass graft; M06.9 Rheumatoid arthritis, unspecified; Z82.49 Family history of ischemic heart disease and other diseases of the circulatory system; Z79.899 Other long term (current) drug therapy

== ENCOUNTER 2023-12-09 10:03 | Inpatient (IN) | payer MEDICARE, OTHER ==
[~2023-12-09] VITALS: Ht 167.6 cm; Wt 76.7 kg
[2023-12-09] MEDS: LIDOCAINE 2% 5ML JELLY UROJET TOP ONE (11:12)
[2023-12-09 11:38] LABS: BASO % 0.2 % (0.0-1.0); EOS % 0.1 % (0.0-3.0); HEMATOCRIT 41.6 % (42.0-52.0); HEMOGLOBIN 13.6 g/dl (13.5-17.5); LYMPH # 0.4 10^3/uL (1.5-5.0); LYMPH % 3.3 % (24.0-44.0); MEAN CORPUSCULAR HEMOGLOBIN 29.5 pg (27.0-33.0); MEAN CORPUSCULAR HGB CONC 32.7 g/dl (32.0-36.5); MEAN CORPUSCULAR VOLUME 90.2 fl (80.0-96.0); MONO # 0.4 10^3/uL (0.0-0.8); MONO % 3.8 % (2.0-8.0); NEUTROPHILS # 10.7 10^3/uL (1.5-8.5); NEUTROPHILS % 92.1 % (36.0-66.0); PLATELET COUNT, AUTOMATED 143 10^3/uL (150-450); RED BLOOD COUNT 4.61 10^6/uL (4.30-6.10); WHITE BLOOD COUNT 11.7 10^3/uL (4.0-10.0)
[2023-12-09] MEDS: NS IV STA (11:41)
[2023-12-09] MEDS: cefTRIAXone SOD 2 GM in D5W MINI-BAG PLUS 50 ML IV ONE (11:53)
[2023-12-09 12:06] LABS: BLOOD UREA NITROGEN 24 MG/DL (9-23); CALCIUM LEVEL 8.8 MG/DL (8.3-10.6); CARBON DIOXIDE LEVEL 24 MMOL/L (20-31); CHLORIDE LEVEL 105 MMOL/L (98-107); CREATININE FOR GFR 1.01 MG/DL (0.70-1.30); GLOMERULAR FILTRATION RATE > 60.0 (>42); GLUCOSE, FASTING 128 MG/DL (74-106); POTASSIUM SERUM 4.1 MMOL/L (3.5-5.1); SODIUM LEVEL 141 MMOL/L (136-145)
[2023-12-09] MEDS ORDERED: MED REC IN PROGRESS XX SCH (13:35)
[2023-12-09] MEDS ORDERED: ACETAMINOPHEN TAB 650MG DOSE (2X325MG) PO PRN (14:10)
[2023-12-09] MEDS ORDERED: MOM 30ML SUSPENSION UDC PO PRN (14:10)
[2023-12-09] MEDS ORDERED: MAALOX 30 ML SUSP *UDC PO PRN (14:10)
[2023-12-09] MEDS ORDERED: COLC0.6T47 PO (14:52)
[2023-12-09] MEDS ORDERED: COVI50SY IM (14:52)
[2023-12-09] MEDS ORDERED: HOME MED LIST COMPLETE! XX SCH (15:00)
[2023-12-09] MEDS: NS 1,000 ML IV SCH (15:10)
[2023-12-09 15:31] LABS: C REACTIVE PROTEIN QUANTITATIV 7.6 MG/DL (<1.0)
[2023-12-09 15:40] LABS: PROCALCITONIN 0.16 ng/ml
[2023-12-09 16:50] VITALS: BP 113/48; TEMP 97.5; O2SAT 94
[2023-12-09] MEDS: ENOXAPARIN 40MG/0.4ML SYRINGE (J1650 PER 10MG) SC SCH (21:25)
[2023-12-09 21:34] VITALS: BP 118/62; TEMP 98.1; O2SAT 95
[2023-12-10 06:00] VITALS: BP 121/63; TEMP 97.9; O2SAT 93
[2023-12-10 08:53] LABS: BASO % 0.2 % (0.0-1.0); EOS # 0.1 10^3/uL (0.0-0.5); EOS % 1.1 % (0.0-3.0); HEMATOCRIT 36.4 % (42.0-52.0); HEMOGLOBIN 11.7 g/dl (13.5-17.5); LYMPH # 0.8 10^3/uL (1.5-5.0); LYMPH % 9.6 % (24.0-44.0); MEAN CORPUSCULAR HEMOGLOBIN 29.6 pg (27.0-33.0); MEAN CORPUSCULAR HGB CONC 32.1 g/dl (32.0-36.5); MEAN CORPUSCULAR VOLUME 92.2 fl (80.0-96.0); MONO # 0.6 10^3/uL (0.0-0.8); MONO % 6.5 % (2.0-8.0); NEUTROPHILS # 7.2 10^3/uL (1.5-8.5); PLATELET COUNT, AUTOMATED 109 10^3/uL (150-450); RED BLOOD COUNT 3.95 10^6/uL (4.30-6.10); WHITE BLOOD COUNT 8.8 10^3/uL (4.0-10.0)
[2023-12-10] MEDS ORDERED: ACETAMINOPHEN 650MG SUPP PR PRN (13:15)
[2023-12-10] MEDS ORDERED: ONDANSETRON 4MG 2ML VIAL IV PRN (13:15)
[2023-12-10] MEDS ORDERED: BISACODYL 10MG SUPP PR PRN (13:15)
[2023-12-10] MEDS ORDERED: SCOPOLAMINE 1MG TRANSDERMAL PATCH TOP PRN (13:15)
[2023-12-13] MEDS: MIRALAX *UNIT DOSE* 17GM PACKET PO PRN (10:37)
== END 2023-12-14 16:17 | disposition home or self-care (01) | DRG 884 ==
LOC: EDBD 10:03 → M ED 10:03 → M ED INP 14:08 → M MSPAV 16:51
PROVIDERS: ADMIT Student in an Organized Health Care Education/Training Program; ATTEND Internal Medicine Nephrology
DX: F03.911 Unspecified dementia, unspecified severity, with agitation (principal); E87.20 Acidosis, unspecified; I25.10 Atherosclerotic heart disease of native coronary artery without angina pectoris; F03.918 Unspecified dementia, unspecified severity, with other behavioral disturbance; I10 Essential (primary) hypertension; M06.9 Rheumatoid arthritis, unspecified; R97.20 Elevated prostate specific antigen [PSA]; G89.29 Other chronic pain; N41.1 Chronic prostatitis; N40.1 Benign prostatic hyperplasia with lower urinary tract symptoms; R15.9 Full incontinence of feces; E78.5 Hyperlipidemia, unspecified; N39.3 Stress incontinence (female) (male); R41.82 Altered mental status, unspecified; K74.60 Unspecified cirrhosis of liver; R26.89 Other abnormalities of gait and mobility; D69.6 Thrombocytopenia, unspecified; Z51.5 Encounter for palliative care; Z66 Do not resuscitate; Z95.1 Presence of aortocoronary bypass graft; Z96.652 Presence of left artificial knee joint

== ENCOUNTER 2024-01-08 10:25 | Inpatient (IN) | payer MEDICARE, OTHER ==
[~2024-01-08] VITALS: Ht 167.6 cm; Wt 71.5 kg
[~2024-01-08 10:25] MED LIST changes: +COLC0.6T47 PO; +COVI50SY IM
[2024-01-08 11:43] LABS: BASO % 0.2 % (0.0-1.0); EOS % 0.1 % (0.0-3.0); HEMATOCRIT 42.6 % (42.0-52.0); HEMOGLOBIN 13.3 g/dl (13.5-17.5); LYMPH # 0.7 10^3/uL (1.5-5.0); MEAN CORPUSCULAR HEMOGLOBIN 28.8 pg (27.0-33.0); MEAN CORPUSCULAR HGB CONC 31.2 g/dl (32.0-36.5); MEAN CORPUSCULAR VOLUME 92.2 fl (80.0-96.0); MONO # 0.8 10^3/uL (0.0-0.8); MONO % 5.9 % (2.0-8.0); NEUTROPHILS # 12.2 10^3/uL (1.5-8.5); PLATELET COUNT, AUTOMATED 141 10^3/uL (150-450); RED BLOOD COUNT 4.62 10^6/uL (4.30-6.10); WHITE BLOOD COUNT 13.8 10^3/uL (4.0-10.0)
[2024-01-08 12:03] LABS: ERYTHROCYTE SEDIMENTATION RATE 57 mm/hr (0-20); RSV AMPLIFICATION NEGATIVE (NEGATIVE)
[2024-01-08 12:04] LABS: ALBUMIN 2.8 G/DL (3.2-5.2); ALKALINE PHOSPHATASE 115 U/L (46-116); ALT/SGPT 25 U/L (7.0-40); AST/SGOT 36 U/L (<34); BILIRUBIN,DIRECT 1.1 MG/DL (<0.4); BILIRUBIN,TOTAL 2.8 MG/DL (0.3-1.2); BLOOD UREA NITROGEN 25 MG/DL (9-23); CALCIUM LEVEL 9.2 MG/DL (8.3-10.6); CARBON DIOXIDE LEVEL 32 MMOL/L (20-31); CHLORIDE LEVEL 107 MMOL/L (98-107); CREATININE FOR GFR 0.89 MG/DL (0.70-1.30); GLOMERULAR FILTRATION RATE > 60.0 (>42); GLUCOSE, FASTING 116 MG/DL (74-106); POTASSIUM SERUM 4.2 MMOL/L (3.5-5.1); SODIUM LEVEL 146 MMOL/L (136-145); TOTAL PROTEIN 6.2 G/DL (5.7-8.2)
[2024-01-08 12:16] LABS: PROCALCITONIN 0.28 ng/ml
[2024-01-08] MEDS ORDERED: ISOVUE-370 76% 100ML VIAL As Ordered ONE (12:59)
[2024-01-08] MEDS: NS 2,330 ML in IV 1 EA IV ONE (13:19)
[2024-01-08] MEDS: PIPERACILLIN/TAZOBACTAM SOD 4.5 GM in D5W MINI-BAG PLUS 50 ML IV ONE (13:20)
[2024-01-08] MEDS ORDERED: GLUCOSE 4GM CHEW TABLET PO PRN (15:15)
[2024-01-08] MEDS ORDERED: GLUCAGON INJ 1MG VIAL SC PRN (15:15)
[2024-01-08] MEDS ORDERED: HOME MED LIST COMPLETE! XX SCH (15:25)
[2024-01-08] MEDS: NS 1,000 ML IV ONE ×2 (15:33→16:06)
[2024-01-08] MEDS: NS 1,000 ML IV SCH (15:33)
[2024-01-08] MEDS: ENOXAPARIN 40MG/0.4ML SYRINGE (J1650 PER 10MG) SC SCH (16:00)
[2024-01-08 16:40] LABS: ABG BASE EXCESS 0.3 (-2.0-2.0); ABG HCO3 24.6 MMOL/L (22.0-26.0); ABG O2 SATURATION 92.9 % (95.0-99.0); ABG PARTIAL PRESSURE CO2 38.2 mmHg (35.0-45.0); ABG STANDARD HCO3 24.7 MMOL/L. (22.0-26.0); ABG TOTAL CO2 25.7 MMOL/L (23.0-31.0); ABG pH (ARTERIAL) 7.426 UNITS (7.350-7.450)
[2024-01-08] MEDS: D5W/0.45% SODIUM CHLORIDE 1,000 ML IV SCH (16:44)
[2024-01-08 18:30] VITALS: BP 130/71; TEMP 96.7; O2SAT 95
[2024-01-08] MEDS: VANCOMYCIN HCL 750 MG, VIAL MATE ADAPTER 1 EACH in D5W 250 ML IV ONE ×2 (18:57→22:02)
[2024-01-08] MEDS ORDERED: PROHANCE 279.3MG/ML 15ML VIAL As Ordered ONE (20:16)
[2024-01-08] MEDS: PIPERACILLIN/TAZOBACTAM SOD 4.5 GM in D5W MINI-BAG PLUS 50 ML IV SCH (23:19)
[2024-01-08 23:58] VITALS: BP 142/54; TEMP 97.9; O2SAT 95
[2024-01-09 03:57] VITALS: BP 102/59; TEMP 98.2; O2SAT 96
[2024-01-09 05:54] LABS: BASO % 0.2 % (0.0-1.0); EOS # 0.1 10^3/uL (0.0-0.5); EOS % 0.5 % (0.0-3.0); HEMATOCRIT 32.3 % (42.0-52.0); LYMPH # 0.6 10^3/uL (1.5-5.0); LYMPH % 6.1 % (24.0-44.0); MEAN CORPUSCULAR HEMOGLOBIN 29.2 pg (27.0-33.0); MEAN CORPUSCULAR HGB CONC 32.5 g/dl (32.0-36.5); MONO # 0.6 10^3/uL (0.0-0.8); MONO % 5.7 % (2.0-8.0); NEUTROPHILS # 8.8 10^3/uL (1.5-8.5); NEUTROPHILS % 86.9 % (36.0-66.0); PLATELET COUNT, AUTOMATED 112 10^3/uL (150-450); RED BLOOD COUNT 3.59 10^6/uL (4.30-6.10); WHITE BLOOD COUNT 10.2 10^3/uL (4.0-10.0)
[2024-01-09 05:59] LABS: HEMOGLOBIN 10.5 g/dl (13.5-17.5)
[2024-01-09 06:05] LABS: D-DIMER QUANT 0.91 ug/mL (<0.5); INR 1.4; PARTIAL THROMBOPLASTIN TIME 37.7 SECONDS (24.8-34.2); PROTHROMBIN TIME 16.8 SECONDS (12.5-14.5)
[2024-01-09 06:18] LABS: BLOOD UREA NITROGEN 16 MG/DL (9-23); CALCIUM LEVEL 7.2 MG/DL (8.3-10.6); CARBON DIOXIDE LEVEL 26 MMOL/L (20-31); CHLORIDE LEVEL 112 MMOL/L (98-107); CREATININE FOR GFR 0.79 MG/DL (0.70-1.30); GLOMERULAR FILTRATION RATE > 60.0 (>42); GLUCOSE, FASTING 124 MG/DL (74-106); POTASSIUM SERUM 3.2 MMOL/L (3.5-5.1); SODIUM LEVEL 145 MMOL/L (136-145)
[2024-01-09] MEDS: VANCOMYCIN HCL 1,000 MG, VIAL MATE ADAPTER 1 EACH in D5W 250 ML IV SCH (07:25)
[2024-01-09 08:00] VITALS: BP 124/58; TEMP 96.5; O2SAT 97
[2024-01-09] MEDS: ATORVASTATIN 20 MG TAB PO SCH (08:59)
[2024-01-09] MEDS: POTASSIUM CHLORIDE 10MEQ SR TABLET PO ONE (08:59)
[2024-01-09] MEDS: FINASTERIDE 5MG TAB PO SCH (09:00)
[2024-01-09] MEDS: allopurinoL 100 MG TAB PO SCH (09:00)
[2024-01-09] MEDS: KCL 10MEQ/100ML SWI (KRUN) 10 MEQ in IV 1 EA IV SCH (11:29)
[2024-01-09 11:40] VITALS: BP 110/84; TEMP 98.6; O2SAT 100
[2024-01-09 12:21] VITALS: BP 106/57; TEMP 97.3
[2024-01-09 19:45] VITALS: BP 155/68; TEMP 97.4; O2SAT 97
[2024-01-09 23:54] VITALS: BP 115/81; TEMP 96.7; O2SAT 95
[2024-01-10 01:44] VITALS: TEMP 97.5; O2SAT 92
[2024-01-10 05:25] VITALS: BP 103/69; TEMP 97.5; O2SAT 94
[2024-01-10 06:27] LABS: BASO % 0.3 % (0.0-1.0); EOS # 0.2 10^3/uL (0.0-0.5); EOS % 1.9 % (0.0-3.0); HEMOGLOBIN 10.2 g/dl (13.5-17.5); LYMPH # 0.6 10^3/uL (1.5-5.0); LYMPH % 6.3 % (24.0-44.0); MEAN CORPUSCULAR HEMOGLOBIN 29.2 pg (27.0-33.0); MEAN CORPUSCULAR HGB CONC 32.9 g/dl (32.0-36.5); MEAN CORPUSCULAR VOLUME 88.8 fl (80.0-96.0); MONO # 0.5 10^3/uL (0.0-0.8); MONO % 4.9 % (2.0-8.0); NEUTROPHILS # 8.4 10^3/uL (1.5-8.5); NEUTROPHILS % 85.9 % (36.0-66.0); PLATELET COUNT, AUTOMATED 110 10^3/uL (150-450); RED BLOOD COUNT 3.49 10^6/uL (4.30-6.10); WHITE BLOOD COUNT 9.8 10^3/uL (4.0-10.0)
[2024-01-10 06:46] LABS: BLOOD UREA NITROGEN 10 MG/DL (9-23); CALCIUM LEVEL 7.1 MG/DL (8.3-10.6); CARBON DIOXIDE LEVEL 26 MMOL/L (20-31); CHLORIDE LEVEL 109 MMOL/L (98-107); CREATININE FOR GFR 0.68 MG/DL (0.70-1.30); GLOMERULAR FILTRATION RATE > 60.0 (>42); GLUCOSE, FASTING 153 MG/DL (74-106); POTASSIUM SERUM 3.1 MMOL/L (3.5-5.1); SODIUM LEVEL 140 MMOL/L (136-145)
[2024-01-10] MEDS: KCL 10MEQ/100ML SWI (KRUN) 10 MEQ in IV 1 EA IV SCH (11:26)
[2024-01-10] MEDS ORDERED: cefTRIAXone SOD 2 GM in D5W MINI-BAG PLUS 50 ML IV SCH (11:55)
[2024-01-10] MEDS ORDERED: CEFTAROLINE FOSAMIL 600 MG in D5W MINI-BAG PLUS 50 ML IV SCH (12:05)
[2024-01-10 12:50] LABS: PROCALCITONIN 0.11 ng/ml
[2024-01-10] MEDS: cefTRIAXone SOD 2 GM in D5W MINI-BAG PLUS 50 ML IV SCH (16:55)
[2024-01-10 19:02] LABS: MAGNESIUM LEVEL 1.3 MG/DL (1.8-2.4); POTASSIUM SERUM 3.6 MMOL/L (3.5-5.1)
[2024-01-10 22:00] VITALS: BP 137/61; TEMP 97.7; O2SAT 91
[2024-01-11 06:00] VITALS: BP 135/49; TEMP 97.5; O2SAT 89
[2024-01-11 06:35] LABS: BASO % 0.2 % (0.0-1.0); EOS # 0.2 10^3/uL (0.0-0.5); EOS % 2.7 % (0.0-3.0); HEMATOCRIT 31.8 % (42.0-52.0); HEMOGLOBIN 10.6 g/dl (13.5-17.5); LYMPH # 0.7 10^3/uL (1.5-5.0); LYMPH % 7.9 % (24.0-44.0); MEAN CORPUSCULAR HEMOGLOBIN 28.9 pg (27.0-33.0); MEAN CORPUSCULAR HGB CONC 33.3 g/dl (32.0-36.5); MEAN CORPUSCULAR VOLUME 86.6 fl (80.0-96.0); MONO # 0.5 10^3/uL (0.0-0.8); MONO % 5.7 % (2.0-8.0); NEUTROPHILS # 7.4 10^3/uL (1.5-8.5); NEUTROPHILS % 82.6 % (36.0-66.0); PLATELET COUNT, AUTOMATED 110 10^3/uL (150-450); RED BLOOD COUNT 3.67 10^6/uL (4.30-6.10); WHITE BLOOD COUNT 8.9 10^3/uL (4.0-10.0)
[2024-01-11 06:55] LABS: BLOOD UREA NITROGEN 9 MG/DL (9-23); CALCIUM LEVEL 7.3 MG/DL (8.3-10.6); CARBON DIOXIDE LEVEL 24 MMOL/L (20-31); CHLORIDE LEVEL 105 MMOL/L (98-107); CREATININE FOR GFR 0.59 MG/DL (0.70-1.30); GLOMERULAR FILTRATION RATE > 60.0 (>42); GLUCOSE, FASTING 115 MG/DL (74-106); POTASSIUM SERUM 3.2 MMOL/L (3.5-5.1); SODIUM LEVEL 134 MMOL/L (136-145)
[2024-01-11] MEDS ORDERED: CALCIUM GLUCONATE 1,000 MG in D5W MINI-BAG PLUS 100 ML IV ONE (07:55)
[2024-01-11] MEDS ORDERED: E-Z-HD 98% w/w 340GM SUSP BTL As Ordered ONE (08:21)
[2024-01-11] MEDS ORDERED: E-Z-GAS II EFFERVESCENT PACKET (SODIUM BICARB./CITRIC ACID/SIMETHICONE) As Ordered ONE (08:21)
[2024-01-11] MEDS ORDERED: E-Z-PAQUE 96% w/w SUSP 176GM BTL As Ordered ONE (08:21)
[2024-01-11 08:43] LABS: IONIZED CALCIUM 4.5 MG/DL (4.5-5.3)
[2024-01-11] MEDS: KCL 10MEQ/100ML SWI (KRUN) 10 MEQ in IV 1 EA IV SCH (08:57)
[2024-01-11 09:12] LABS: MAGNESIUM LEVEL 1.2 MG/DL (1.8-2.4)
[2024-01-11] MEDS ORDERED: MAG SULF 1GM/100ML (MAG RUN) 1 GM in IV 1 EA IV SCH (10:00)
[2024-01-11] MEDS: DEXTROSE 50% 50ML SYRINGE IV PRN (12:04)
[2024-01-11 14:00] VITALS: BP 127/72; TEMP 97.2; O2SAT 97
[2024-01-11] MEDS: MAG SULF 1GM/100ML (MAG RUN) 1 GM in IV 1 EA IV SCH (14:54)
[2024-01-11 22:00] VITALS: BP_SYST 117; BP_DIAS 43; BP_DIAS 62; TEMP 97.5; O2SAT 94
[2024-01-12 06:00] VITALS: BP 118/61; TEMP 97.9; O2SAT 94
[2024-01-12 06:01] LABS: BASO % 0.2 % (0.0-1.0); EOS # 0.2 10^3/uL (0.0-0.5); EOS % 1.2 % (0.0-3.0); HEMATOCRIT 35.5 % (42.0-52.0); HEMOGLOBIN 11.7 g/dl (13.5-17.5); LYMPH # 0.5 10^3/uL (1.5-5.0); LYMPH % 4.4 % (24.0-44.0); MEAN CORPUSCULAR HEMOGLOBIN 28.6 pg (27.0-33.0); MEAN CORPUSCULAR VOLUME 86.8 fl (80.0-96.0); MONO # 0.6 10^3/uL (0.0-0.8); MONO % 4.5 % (2.0-8.0); NEUTROPHILS # 10.7 10^3/uL (1.5-8.5); NEUTROPHILS % 88.6 % (36.0-66.0); PLATELET COUNT, AUTOMATED 126 10^3/uL (150-450); RED BLOOD COUNT 4.09 10^6/uL (4.30-6.10); WHITE BLOOD COUNT 12.1 10^3/uL (4.0-10.0)
[2024-01-12 06:24] LABS: BLOOD UREA NITROGEN 6 MG/DL (9-23); CALCIUM LEVEL 7.5 MG/DL (8.3-10.6); CARBON DIOXIDE LEVEL 25 MMOL/L (20-31); CHLORIDE LEVEL 105 MMOL/L (98-107); CREATININE FOR GFR 0.62 MG/DL (0.70-1.30); GLOMERULAR FILTRATION RATE > 60.0 (>42); GLUCOSE, FASTING 135 MG/DL (74-106); POTASSIUM SERUM 3.6 MMOL/L (3.5-5.1); SODIUM LEVEL 136 MMOL/L (136-145)
[2024-01-12 08:48] LABS: MAGNESIUM LEVEL 1.6 MG/DL (1.8-2.4)
[2024-01-12 08:56] LABS: PROCALCITONIN 0.13 ng/ml
[2024-01-12 10:20] LABS: VANCOMYCIN RANDOM 7.8 UG/ML
[2024-01-12] MEDS: VANCOMYCIN HCL 1,000 MG, VIAL MATE ADAPTER 1 EACH in D5W 250 ML IV ONE (11:07)
[2024-01-12] MEDS ORDERED: IPRATROPIUM 0.5MG/ALBUTEROL 2.5MG INH SOL UD 3ML (DUONEB) NEB PRN (11:45)
[2024-01-12 14:00] VITALS: BP 124/57; TEMP 96.8; O2SAT 96
[2024-01-12] MEDS: VANCOMYCIN HCL 1,000 MG, VIAL MATE ADAPTER 1 EACH in D5W 250 ML IV SCH (20:50)
[2024-01-12 21:25] VITALS: BP 112/60; TEMP 97.1; O2SAT 97
[2024-01-13 06:00] VITALS: BP 123/66; TEMP 97.7; O2SAT 95
[2024-01-13 07:20] LABS: BASO % 0.3 % (0.0-1.0); EOS # 0.2 10^3/uL (0.0-0.5); EOS % 2.4 % (0.0-3.0); HEMATOCRIT 33.9 % (42.0-52.0); HEMOGLOBIN 11.1 g/dl (13.5-17.5); LYMPH # 0.7 10^3/uL (1.5-5.0); LYMPH % 7.4 % (24.0-44.0); MEAN CORPUSCULAR HEMOGLOBIN 28.5 pg (27.0-33.0); MEAN CORPUSCULAR HGB CONC 32.7 g/dl (32.0-36.5); MEAN CORPUSCULAR VOLUME 87.1 fl (80.0-96.0); MONO # 0.5 10^3/uL (0.0-0.8); MONO % 4.9 % (2.0-8.0); NEUTROPHILS # 8.3 10^3/uL (1.5-8.5); NEUTROPHILS % 83.8 % (36.0-66.0); PLATELET COUNT, AUTOMATED 110 10^3/uL (150-450); RED BLOOD COUNT 3.89 10^6/uL (4.30-6.10); WHITE BLOOD COUNT 9.9 10^3/uL (4.0-10.0)
[2024-01-13 07:42] LABS: VANCOMYCIN LEVEL TROUGH 11.7 UG/ML (10.0-20.0)
[2024-01-13 07:44] LABS: BLOOD UREA NITROGEN 6 MG/DL (9-23); CALCIUM LEVEL 7.5 MG/DL (8.3-10.6); CARBON DIOXIDE LEVEL 24 MMOL/L (20-31); CHLORIDE LEVEL 108 MMOL/L (98-107); CREATININE FOR GFR 0.58 MG/DL (0.70-1.30); GLOMERULAR FILTRATION RATE > 60.0 (>42); GLUCOSE, FASTING 91 MG/DL (74-106); POTASSIUM SERUM 3.8 MMOL/L (3.5-5.1); SODIUM LEVEL 137 MMOL/L (136-145)
[2024-01-13] MEDS ORDERED: MAG SULF 1GM/100ML (MAG RUN) 1 GM in IV 1 EA IV ONE (08:50)
[2024-01-13 09:17] LABS: IONIZED CALCIUM 4.4 MG/DL (4.5-5.3)
[2024-01-13 09:42] LABS: MAGNESIUM LEVEL 1.4 MG/DL (1.8-2.4)
[2024-01-13] MEDS ORDERED: ATROPINE SULFATE 1% OPHTH SOLN 2ML BTL SL PRN (09:50)
[2024-01-13] MEDS ORDERED: ONDANSETRON 4MG ORAL DISINTEGRATING TAB PO PRN (09:50)
[2024-01-13] MEDS ORDERED: HYOSCYAMINE SULFATE 0.125 MG SUBL TABLET PO PRN (09:50)
[2024-01-13 09:52] LABS: PROCALCITONIN 0.13 ng/ml
[2024-01-13] MEDS ORDERED: CALCIUM GLUCONATE 1,000 MG in D5W MINI-BAG PLUS 100 ML IV ONE (10:00)
[2024-01-13] MEDS ORDERED: KCL 10MEQ/100ML SWI (KRUN) 10 MEQ in IV 1 EA IV ONE (10:00)
[2024-01-13] MEDS: SCOPOLAMINE 1MG TRANSDERMAL PATCH TOP SCH (10:17)
[2024-01-13] MEDS: MORPHINE 10MG/0.5ML ORAL CONCENTRATE SOLUTION U/D SL PRN (10:49)
[2024-01-13] MEDS ORDERED: LevoFLOXacin IV 750 MG in IV 1 EA IV SCH (12:00)
[2024-01-13] MEDS: LORazepam 1 MG TAB PO PRN (21:29)
[2024-01-14] MEDS ORDERED: HYOS125TA PO (08:05)
[2024-01-14] MEDS ORDERED: ATIV1TAB10 PO (08:05)
[2024-01-14] MEDS ORDERED: TRAN1DIS4 TOP (08:05)
[2024-01-14] MEDS ORDERED: MORP1SOL5 PO (08:05)
[2024-01-14] MEDS ORDERED: ONDA4TAB6 PO (08:05)
== END 2024-01-17 12:39 | disposition hospice, home (50) | DRG 871 ==
LOC: M ED 10:25 → EDBD 10:25 → M ED INP 15:14 → EEVIPCON 15:14 → ENRESERV 17:01 → M PCU 18:12 → M MSPAV 01-10 01:40
PROVIDERS: ADMIT General Practice; ATTEND Internal Medicine
DX: A41.9 Sepsis, unspecified organism (principal); G93.41 Metabolic encephalopathy; L89.154 Pressure ulcer of sacral region, stage 4; E87.0 Hyperosmolality and hypernatremia; E87.20 Acidosis, unspecified; K74.60 Unspecified cirrhosis of liver; I10 Essential (primary) hypertension; M06.9 Rheumatoid arthritis, unspecified; D69.6 Thrombocytopenia, unspecified; I25.10 Atherosclerotic heart disease of native coronary artery without angina pectoris; E78.5 Hyperlipidemia, unspecified; N40.1 Benign prostatic hyperplasia with lower urinary tract symptoms; Z51.5 Encounter for palliative care; Z66 Do not resuscitate; N39.3 Stress incontinence (female) (male); Z95.1 Presence of aortocoronary bypass graft; N21.0 Calculus in bladder; R15.9 Full incontinence of feces; E80.6 Other disorders of bilirubin metabolism; M10.9 Gout, unspecified; K80.20 Calculus of gallbladder without cholecystitis without obstruction; G30.9 Alzheimer's disease, unspecified; F02.80 Dementia in other diseases classified elsewhere, unspecified severity, without behavioral disturbance, psychotic disturbance, mood disturbance, and anxiety; R62.7 Adult failure to thrive; G89.29 Other chronic pain; B96.4 Proteus (mirabilis) (morganii) as the cause of diseases classified elsewhere; R13.10 Dysphagia, unspecified; N41.1 Chronic prostatitis; B95.61 Methicillin susceptible Staphylococcus aureus infection as the cause of diseases classified elsewhere; R06.6 Hiccough; Z74.1 Need for assistance with personal care; Z79.899 Other long term (current) drug therapy; Z87.442 Personal history of urinary calculi; Z96.652 Presence of left artificial knee joint